=== PATIENT | female | born 1995 | race Caucasian/White ===

== ENCOUNTER → 2018-05-25 17:06 | Outpatient (REF) | payer OTHER, SELFPAY ==
[2018-05-30 16:05] LABS: Neisseria gonorrhoeae, NAA Negative (Negative)
== END ==
LOC: LAB 17:06
PROVIDERS: Obstetrics & Gynecology; Visit Provider Nurse Practitioner Obstetrics & Gynecology
DX: Z00.00 Encounter for general adult medical examination without abnormal findings (principal)
CPT/HCPCS: 87491; 87591

== ENCOUNTER → 2019-09-04 09:40 | Outpatient (CLI) | payer OTHER, SELFPAY ==
--- NOTE | 2019-09-04 09:43 | US_ITS ---
PROCEDURE: US TRANSVAGINAL CLINICAL INDICATION: US T/V- IUD placement DUB Intermittent bleeding. IUD in place COMPARISON: No exams were available for comparison FINDINGS: UTERUS: 6.8 x 3 x 4.5 cm with a combined endometrial thickness of 4 mm. IUD is in place as expected. No uterine mass evident. LEFT OVARY: 3.6 x 2.2 cm and containing a 16 mm cyst. Blood flow is present RIGHT OVARY: 2.4 x 1.5 cm containing a small 6 mm cyst. Blood flow noted. No cul-de-sac fluid IMPRESSION: IUD in place. Otherwise negative pelvic ultrasound Dictated by: Gavin Lira MD 09/04/2019 18:26 Electronically signed by Gavin Lira MD in [place] 09/04/2019 18:26
== END ==
PROVIDERS: PCP Family Medicine; Visit Provider Obstetrics & Gynecology
DX: N93.8 Other specified abnormal uterine and vaginal bleeding (principal); Z97.5 Presence of (intrauterine) contraceptive device
CPT/HCPCS: 76830

== ENCOUNTER → 2020-01-04 16:43 | Outpatient (CLI) | payer OTHER, SELFPAY | PROVIDERS: Visit Provider Family Medicine | DX: N30.00 Acute cystitis without hematuria (principal) | CPT/HCPCS: 87086; 87088; 87186 ==

== ENCOUNTER → 2020-07-30 11:16 | Outpatient (CLI) | payer OTHER, SELFPAY ==
[2020-07-30 12:15] LABS: Basophils % 0.3 % (0.1-2.0); Eosinophils # 0.1 K/mm3 (0.0-0.4); Eosinophils % 1.7 % (0.1-12.0); Hematocrit 43.3 % (37.0-47.0); Hemoglobin 13.7 g/dL (12.2-16.2); Lymphocytes # 1.7 K/mm3 (0.7-4.5); Lymphocytes % 34.8 % (10-50); Mean Corpuscular HGB Conc 31.7 g/dL (31.8-35.4); Mean Corpuscular Hemoglobin 29.3 pg (27.0-31.2); Mean Corpuscular Volume 92.4 fl (81-99); Mean Platelet Volume 6.9 fl (7.4-10.4); Monocytes # 0.2 K/mm3 (0.1-1.0); Monocytes % 4.5 % (1.7-9.3); Neutrophils # 2.8 K/mm3 (1.8-7.8); Neutrophils % 58.7 % (37.0-80.0); Platelet Count 336 K/mm3 (142-424); Red Blood Count 4.69 M/mm3 (4.20-5.40); Red Cell Distribution Width 12.7 % (11.5-17.5); White Blood Count 4.8 K/mm3 (4.8-10.8)
== END ==
PROVIDERS: PCP Family Medicine; Visit Provider Family Medicine
DX: Z20.828 Contact with and (suspected) exposure to other viral communicable diseases (principal); U07.1 COVID-19
CPT/HCPCS: 36415; 85025; U0003

== ENCOUNTER 2021-06-22 20:17 | Emergency (ER) | payer OTHER, SELFPAY ==
[2021-06-22 21:00] VITALS: BP 124/94; PULSE 115; RESP 20; TEMP 36.9; O2SAT 96; BMI 28.3
--- NOTE | 2021-06-22 21:23 | HMH.EDUTC ---
[facility] [place] Clinical Impression: Nausea Diarrhea Qualifiers: Diarrhea type: unspecified type Qualified Code(s): R19.7 - Diarrhea, unspecified Disposition: Home, Self-Care Condition on Discharge: Good Instructions: Diarrhea Additional Instructions: Drink extra fluids with and between meals. If you have difficulty drinking, try very small amounts of water or suck on ice chips. ? Avoid fruit juices, as these do not replace minerals and can actually increase diarrhea. ? Children and adults can use sports drinks to replenish electrolytes. Younger children and infants should use products formulated for children, like oral rehydration solutions. ? Eat food in small amounts and let your stomach recover. ? Get lots of rest. You may feel tired or weak. ? No greasy or fried foods for the next 24-48 hours BRAT diet Bananas Rice Apples and [place] ? Make sure to drink plenty of liquids ? Return if needed ? Straight to ER if any life threatening symptoms ? Zofran as prescribed ? You was given an outpatient order for diarrhea panel, please collect specimen and bring back to outpatient lab then call back to the [facility] or follow up with family doctor for results ? Follow up with family doctor in the next 48-72 hours if no improvement or any worsening of symptoms Prescriptions: Dicyclomine HCl [Bentyl 10mg capsule] 10 mg PO TID PRN #15 cap PRN Reason: Cramping Transmission Status: Sent to [facility] Ondansetron [Zofran 4mg ODT] 4 mg PO TIDP PRN #6 tab PRN Reason: Nausea Transmission Status: Sent to [facility] Referrals: Akil Cleveland MD [Primary Care Provider] - As needed Forms: Work/School Release Medical Decision Making - Tomi Inquiry Pt receiving controlled substance: No Tomi was queried for this patient: No Vital Signs: 06/22/21 21:00 Temperature 98.5 F Temperature Source Oral Pulse Rate [Right Brachial] 115 H Respiratory Rate 20 Blood Pressure [Right Arm] 124/94 H Blood Pressure Mean [Right Arm] 104 Blood Pressure Source [Right Arm] Automatic Cuff Blood Pressure Position [Right Arm] Sitting 02 Sat by Pulse Oximetry 96 Oxygen Delivery Method Room Air - Lab Data Lab results reviewed: Yes: I reviewed the patient's lab results. Orders (Tests/Meds): ED MEDICATIONS Discontinued Medications Generic Name Dose Route Start Last Admin Trade Name Freq PRN Reason Stop Dose Admin Dicyclomine HCl 10 mg 06/22/21 21:35 Dicyclomine 10mg Capsule PO 06/22/21 21:36 ONCE ONE Ondansetron HCl 4 mg 06/22/21 21:35 Ondansetron 4mg Odt SL 06/22/21 21:36 ONCE ONE Medical Decision Narrative: Patient states that she was feeling much better after medication cramping and nausea much improved and patient sitting on exam table drinking water [facility] [place] HPI - General Stated complaint: possible food poisen Time Seen by Provider: 06/22/21 21:30 Mode of Arrival: Ambulatory Source of Information: Patient Limitations: No Limitations Description of Symptoms (Recalled from Triage Doc. by RN): PATIENT C/O DIARRHEA, NAUSEA AND WEAKNESS SINCE TUESDAY NIGHT. POSSIBLE FOOD POISONING HEENT Symptoms (Recalled from RN notes): No Resp Symptoms (Recalled from RN notes): No Skin Symptoms (Recalled from RN notes): No MS Symptoms (Recalled from RN notes): No Functional Status (Recalled from RN notes): WNL - History of Present Illness Provider Complaint: Patient states that she eat out the other night and her and her boyfriend got sick States that she has been having diarrhea, nausea and cramping States that she was worried if she didnt come in and get something for the nausea she would end up dehydrated - Related Data Home Medications Medication Instructions Recorded Confirmed escitalopram oxalate 10 mg tablet 10 mg PO 90 Days tab 05/25/18 10/24/19 copper 380 square mm intrauterine INTRAUTERI 07/24/20 device fluticasone propionate 50 1 spray INTRANASAL DAILY 07/24/20 mcg/actua
[2021-06-22 21:50] VITALS: BP 111/74; PULSE 109; RESP 20; TEMP 36.9; O2SAT 96
[2021-06-23 19:01] LABS: UTC Pregnancy Test, Urine Negative (Negative)
== END 2021-06-22 21:55 | disposition home or self-care (01) ==
PROVIDERS: Emergency Provider Nurse Practitioner; PCP Family Medicine
DX: R11.0 Nausea (principal); F41.9 Anxiety disorder, unspecified; G43.709 Chronic migraine without aura, not intractable, without status migrainosus; Z88.0 Allergy status to penicillin
CPT/HCPCS: 81025; 99202; G0463

== ENCOUNTER → 2021-11-11 12:12 | Outpatient (CLI) | payer OTHER, SELFPAY | PROVIDERS: PCP Family Medicine; Visit Provider Nurse Practitioner | DX: Z20.822 Contact with and (suspected) exposure to COVID-19 (principal) | CPT/HCPCS: C9803; U0003; U0005 ==

== ENCOUNTER → 2021-11-11 12:24 | Outpatient (CLI) | payer OTHER, SELFPAY | PROVIDERS: Visit Provider Nurse Practitioner | DX: Z11.52 Encounter for screening for COVID-19 (principal) ==

== ENCOUNTER → 2022-05-06 11:33 | Outpatient (CLI) | payer OTHER, SELFPAY ==
[2022-05-06 12:31] LABS: Basophils % 0.8 % (0.1-2.0); Eosinophils # 0.1 K/mm3 (0.0-0.4); Eosinophils % 1.4 % (0.1-12.0); Hematocrit 38.3 % (37.0-47.0); Hemoglobin 12.4 g/dL (12.2-16.2); Lymphocytes # 1.4 K/mm3 (0.7-4.5); Lymphocytes % 26.6 % (10-50); Mean Corpuscular HGB Conc 32.4 g/dL (31.8-35.4); Mean Corpuscular Hemoglobin 26.8 pg (27.0-31.2); Mean Corpuscular Volume 82.8 fl (81-99); Mean Platelet Volume 6.9 fl (7.4-10.4); Monocytes # 0.3 K/mm3 (0.1-1.0); Monocytes % 5.8 % (1.7-9.3); Neutrophils # 3.5 K/mm3 (1.8-7.8); Neutrophils % 65.4 % (37.0-80.0); Platelet Count 371 K/mm3 (142-424); Red Blood Count 4.62 M/mm3 (4.20-5.40); Red Cell Distribution Width 14.3 % (11.5-17.5); White Blood Count 5.3 K/mm3 (4.8-10.8)
[2022-05-06 12:41] LABS: Strep Scrn Group A (Rapid) Negative (Negative)
== END ==
PROVIDERS: PCP Family Medicine; Visit Provider Family Medicine
DX: Z20.822 Contact with and (suspected) exposure to COVID-19 (principal); J02.9 Acute pharyngitis, unspecified
CPT/HCPCS: 36415; 85025; 87430; C9803; U0003; U0005

== ENCOUNTER 2022-10-12 09:28 | Emergency (ER) | payer OTHER, SELFPAY ==
[2022-10-12 10:23] VITALS: BP 138/87; PULSE 84; RESP 19; TEMP 36.7; O2SAT 100; BMI 30.8
[2022-10-12 10:35] LABS: UTC Influenza A Antigen Negative (Negative); UTC Influenza B Antigen Negative (Negative); UTC Strep Screen (Rapid) Negative (Negative)
--- NOTE | 2022-10-12 10:38 | EXP.UTC ---
Discharge Plan Disposition Patient Disposition: Home, Self-Care Condition: Good Prescriptions Prescriptions: New oseltamivir [Tamiflu] 75 mg capsule 75 mg PO Q12H 5 Days Qty: 10 0RF [id number] [Bromfed DM] 2-30-10 mg/5 mL Syrup 10 ml PO Q4H PRN (Reason: Cough) Qty: 240 0RF No Action ParaGard T 380A 380 square mm intrauterine device 1 device INTRAUTERI ONCE Qty: 1 0RF montelukast [Singulair] 10 mg tablet 10 mg PO DAILY fluticasone propionate 50 mcg/actuation spray,suspension 1 spray INTRANASAL DAILY Rx Instructions: administer into each nostril cephalexin 500 mg capsule 500 mg PO BID Qty: 14 0RF Referrals Follow up/Referrals: Akil Cleveland MD [Primary Care Provider] - See instructions Activity Restrictions/Add. Instructions Additional Instructions/Restrictions: Start Tamiflu today if you are going to take it. Discussed risk and possible benefits. Lots of rest Increase Fluids water, Gatorade, powerade, pedialyte,if /toddler/child Alternate Tylenol and / or ibuprofen as discussed for fever, aches, chills Follow up IMMEDIATELY with your family doctor for new or worsening Symptoms OR no noticeable improvement over the next 48-72 hours, 911 for difficulty or breathing You or your child area contagious until no fever, aches, chills for 24 hours with medication for symptoms Help Prevent the spread of influenza: ?Wash your hands often. Use soap and water. Wash your hands after you use the bathroom, change a child's diapers, or sneeze. Wash your hands before you prepare or eat food. Use gel hand cleanser that has 60% alcohol, when soap and water are not available. Do not touch your eyes, nose, or mouth unless you have washed your hands first. Cover your mouth when you sneeze or cough. Cough into a tissue or the bend of your arm. If you use a tissue, throw it away immediately and wash your hands. Clean shared items with a germ-killing tack cleaner. Clean table surfaces, doorknobs, and light switches. Do not share towels, silverware, and dishes with people who are sick. Wash bed sheets, towels, silverware, and dishes with soap and water. Wear a mask over your mouth and nose if you are sick. The face mask may help protect others from becoming infected with the flu. Wear the mask when in common areas of your home or if you seek care with a healthcare provider. Stay away from others if you are sick. Stay at home until 24 hours after your fever and symptoms are gone. Clinical Impressions Clinical Impression: Flu-like symptoms Stand Alone Forms Stand Alone Forms: Work/School Release Instructions Patient Instructions: Oseltamivir, Cough Discharge ED Provider: Denver Johnson [facility] [place] General Stated complaint: chest/head congestion Mode of Arrival: Ambulatory Source of Information: Patient Limitations: No Limitations Time Seen by Provider: 10/12/22 10:38 Description of Symptoms (Recalled from Triage Doc. by RN): pt comes in with c/o congestion, that began this morning. possible flu exposure pt unsure HEENT Symptoms (Recalled from RN notes): No Resp Symptoms (Recalled from RN notes): Yes Skin Symptoms (Recalled from RN notes): No MS Symptoms (Recalled from RN notes): No Functional Status (Recalled from RN notes): n/a History of Present Illness Provider Complaint: Patient states that she has been around her that is positive for the flu States that she has been having body aches, nasal congestion and cough and today she was feeling worse so she came in Related Data Home Medications Medication Instructions Recorded Confirmed fluticasone propionate 50 1 spray intranasal DAILY 07/24/20 07/27/22 mcg/actuation nasal spray,suspension montelukast 10 mg tablet 10 mg PO DAILY 07/24/20 07/27/22 Faith
[2022-10-12 11:02] VITALS: BP 138/87; PULSE 84; RESP 19; TEMP 36.7
== END 2022-10-12 11:03 | disposition home or self-care (01) ==
PROVIDERS: Emergency Provider Nurse Practitioner Family; PCP Family Medicine
DX: R09.81 Nasal congestion (principal)
CPT/HCPCS: 87804; 87880; 99212; G0463

== ENCOUNTER → 2023-01-17 11:45 | Outpatient (CLI) | payer OTHER, BC, SELFPAY ==
[2023-01-17 13:27] LABS: HCG,Quantitative 212 mIU/ml (0-5.42)
[2023-01-18 12:14] LABS: Progesterone 13.5 ng/mL (.)
== END ==
PROVIDERS: PCP Family Medicine; Visit Provider Obstetrics & Gynecology
DX: Z34.90 Encounter for supervision of normal pregnancy, unspecified, unspecified trimester (principal)
CPT/HCPCS: 36415; 84144; 84702

== ENCOUNTER → 2023-01-21 11:32 | Outpatient (CLI) | payer BC, OTHER, SELFPAY ==
[2023-01-21 13:11] LABS: HCG,Quantitative 1496 mIU/ml (0-5.42)
== END ==
PROVIDERS: PCP Family Medicine; Visit Provider Obstetrics & Gynecology
DX: Z34.90 Encounter for supervision of normal pregnancy, unspecified, unspecified trimester (principal)
CPT/HCPCS: 36415; 84702

== ENCOUNTER → 2023-02-08 09:44 | Outpatient (CLI) | payer BC, OTHER, SELFPAY ==
[2023-02-08 10:28] LABS: Basophils % 0.3 % (0.1-2.0); Eosinophils % 0.3 % (0.1-12.0); Hematocrit 38.9 % (37.0-47.0); Hemoglobin 12.8 g/dL (12.2-16.2); Lymphocytes # 1.8 K/mm3 (0.7-4.5); Lymphocytes % 15.8 % (10-50); Mean Corpuscular Hemoglobin 26.4 pg (27.0-31.2); Mean Corpuscular Volume 80.2 fl (81-99); Mean Platelet Volume 7.4 fl (7.4-10.4); Monocytes # 0.5 K/mm3 (0.1-1.0); Monocytes % 4.6 % (1.7-9.3); Neutrophils # 9.1 K/mm3 (1.8-7.8); Platelet Count 405 K/mm3 (142-424); Red Blood Count 4.85 M/mm3 (4.20-5.40); Red Cell Distribution Width 16.1 % (11.5-17.5); White Blood Count 11.6 K/mm3 (4.8-10.8)
[2023-02-09 11:30] LABS: Rubella Antibodies, IgG <0.90 index (Immune >0.99)
[2023-02-11 05:34] LABS: Neisseria gonorrhoeae, NAA Negative (Negative)
[2023-02-20 21:05] LABS: HIV Screen 4th Generation wRfx Non Reactive; Hepatitis B Surface Antigen Negative; Hepatitis C Antibody Non Reactive
[2023-02-20 21:06] LABS: Rapid Plasma Reagin Ab Titer Non Reactive
== END ==
PROVIDERS: PCP Family Medicine; Visit Provider Obstetrics & Gynecology
DX: Z34.90 Encounter for supervision of normal pregnancy, unspecified, unspecified trimester (principal)
CPT/HCPCS: 36415; 85025; 86593; 86703; 86762; 86850; 87086; 87088; 87186; 87340; 87380; 87491; 87591; G0432

== ENCOUNTER → 2023-05-09 13:47 | Outpatient (CLI) | payer BC, OTHER, SELFPAY ==
--- NOTE | 2023-05-09 13:47 | US_ITS ---
PROCEDURE: US OB /MATERNAL DETAIL CLINICAL INDICATION: 20 wk anatomy scan COMPARISON: No exams available for comparison FINDINGS: Transabdominal sonographic images were obtained of the uterus. From her established due date she is 20 weeks 2 days. Single viable intrauterine gestation. Cephalic position. Placenta: Posteriorplacenta grade 1. There is average amount fluid. The cervix appears satisfactory. Closed and measuring 4 cm in length. Complete survey performed and was unremarkable on the submitted images as in PACS. No major anomalies identified on survey imaging by technologist. Active fetus. Three-vessel cord with satisfactory umbilical cord insertion. 4- chamber heart noted. LVOT, RVOT, aortic arch appear normal. Survey of brain & ventricles Unremarkable. Thalamus, cerebellum, choroid plexus, cisterna magna appear normal. Face and neck survey unremarkable. Profile, nasion, lips and nose appeared normal. Diaphragm and chest views unremarkable. Abdomen: Both kidneys noted, 2.9 mm renal pyelectasis left kidney. Stomach and bladder noted and satisfactory. Spine: Survey of the spine satisfactory with no anomalies identified nor imaged. Upper, thoracic and lower spine appear normal. Both arms and legs noted. Amniotic Fluid: Adequate. Measurements: Average ultrasound age 20weeks 0 days. Estimated due date by ultrasound age 1209/26/2023. Estimated weight 315g BPD = 20weeks 2days HC = 20weeks AC = 19weeks 3days FL = 20weeks 2days Growth Percentile= 22 Heart Rate = 153bpm Cerebellum = 19weeks 4days Humerus = 20weeks 5days HC/AC is 1.25 FL/BPD is 0.7 FL/AC is 0.23 IMPRESSION: 1. Viable fetus in the cephalic presentation with a posterior placenta grade 1. 2. The fluid is within normal limits. 3. Normal appearing anatomical scan with no major abnormalities found. 4. There is minimal renal pyelectasis measuring 2.9 mm on the left. 5. Size and dates are congruent. Dictated by: Wayne Mina MD 05/09/2023 20:49 Wayne Mina MD in [place] 05/09/2023 20:49
== END ==
PROVIDERS: PCP Family Medicine; Visit Provider Obstetrics & Gynecology
DX: Z34.92 Encounter for supervision of normal pregnancy, unspecified, second trimester (principal); Z3A.20 20 weeks gestation of pregnancy
CPT/HCPCS: 76811

== ENCOUNTER → 2023-06-21 07:38 | Outpatient (CLI) | payer BC, OTHER, SELFPAY ==
[2023-06-21 07:56] LABS: Basophils % 0.3 % (0.1-2.0); Eosinophils # 0.2 K/mm3 (0.0-0.4); Eosinophils % 1.5 % (0.1-12.0); Hematocrit 34.7 % (37.0-47.0); Hemoglobin 11.1 g/dL (12.2-16.2); Lymphocytes # 1.8 K/mm3 (0.7-4.5); Lymphocytes % 16.9 % (10-50); Mean Corpuscular HGB Conc 31.8 g/dL (31.8-35.4); Mean Corpuscular Hemoglobin 25.7 pg (27.0-31.2); Mean Corpuscular Volume 80.9 fl (81-99); Mean Platelet Volume 7.6 fl (7.4-10.4); Monocytes # 0.5 K/mm3 (0.1-1.0); Monocytes % 4.6 % (1.7-9.3); Neutrophils % 76.7 % (37.0-80.0); Platelet Count 447 K/mm3 (142-424); Red Blood Count 4.29 M/mm3 (4.20-5.40); White Blood Count 10.4 K/mm3 (4.8-10.8)
[2023-06-21 08:13] LABS: Glucose,Fasting 85 mg/dl (74-100)
[2023-06-21 09:37] LABS: Glucose 1 Hour 122 mg/dL (74-100)
== END ==
PROVIDERS: PCP Family Medicine; Visit Provider Obstetrics & Gynecology
DX: Z34.92 Encounter for supervision of normal pregnancy, unspecified, second trimester (principal); Z3A.27 27 weeks gestation of pregnancy
CPT/HCPCS: 36415; 82951; 85025

== ENCOUNTER → 2023-07-18 11:06 | Outpatient (CLI) | payer BC, OTHER, SELFPAY ==
[2023-07-18 11:44] LABS: Basophils % 0.2 % (0.1-2.0); Eosinophils # 0.1 K/mm3 (0.0-0.4); Eosinophils % 0.6 % (0.1-12.0); Hematocrit 34.3 % (37.0-47.0); Hemoglobin 10.7 g/dL (12.2-16.2); Lymphocytes # 1.6 K/mm3 (0.7-4.5); Lymphocytes % 13.8 % (10-50); Mean Corpuscular HGB Conc 31.2 g/dL (31.8-35.4); Mean Corpuscular Hemoglobin 24.3 pg (27.0-31.2); Mean Platelet Volume 7.5 fl (7.4-10.4); Monocytes # 0.6 K/mm3 (0.1-1.0); Monocytes % 4.9 % (1.7-9.3); Neutrophils # 9.1 K/mm3 (1.8-7.8); Neutrophils % 80.5 % (37.0-80.0); Platelet Count 463 K/mm3 (142-424); Red Blood Count 4.39 M/mm3 (4.20-5.40); Red Cell Distribution Width 15.3 % (11.5-17.5); White Blood Count 11.4 K/mm3 (4.8-10.8)
[2023-07-18 13:27] LABS: Alanine Aminotransferase 35 U/L (12-78); Albumin Level 3.6 g/dl (3.5-5.0); Albumin/Globulin Ratio 1.2 (1.1-1.8); Alkaline Phosphatase 102 U/L (38-126); Amylase 36 U/L (30-110); Anion Gap 11.2 mEq/L (5-15); Aspartate Amino Transferase 29 U/L (14-36); Blood Urea Nitrogen 5 mg/dl (7-17); Calcium 9.2 mg/dl (8.4-10.2); Carbon Dioxide 24 mmol/L (22.0-30.0); Chloride 105 mmol/L (98-107); Estimated Glomerular Filt Rate 150 ml/min (>60); GFR (African American) 182 ML/MIN (>60); Glucose 78 mg/dl (74-100); Lipase 61 U/L (23-300); Potassium 4.2 mmoL/L (3.5-5.1); Sodium 136 mmol/L (136-145); Total Protein,Serum 6.6 g/dl (6.3-8.2)
[2023-07-18 13:33] LABS: Bilirubin,Total < 0.1 mg/dl (0.2-1.3)
== END ==
PROVIDERS: PCP Family Medicine; Visit Provider Obstetrics & Gynecology
DX: Z3A.30 30 weeks gestation of pregnancy; R10.11 Right upper quadrant pain; O09.893 Supervision of other high risk pregnancies, third trimester
CPT/HCPCS: 36415; 80053; 82150; 83690; 85025

== ENCOUNTER → 2023-09-01 23:14 | Outpatient (CLI) | payer BC, OTHER, SELFPAY | PROVIDERS: PCP Family Medicine; Visit Provider Obstetrics & Gynecology | DX: Z34.93 Encounter for supervision of normal pregnancy, unspecified, third trimester (principal); Z3A.36 36 weeks gestation of pregnancy | CPT/HCPCS: 86403 ==

== ENCOUNTER 2023-10-02 13:26 | Inpatient (IN) | payer BC, OTHER, SELFPAY ==
[2023-10-02 13:43] VITALS: BMI 36.5
--- NOTE | 2023-10-02 14:04 | P.CONPHA_ITS ---
Pharmacy Intervention Comments: MEDICATION RECONCILIATION COMPLETED ON PATIENT USING EXTERNAL FILL HISTORY FROM PHARMACY AND LIST FROM FIELD SPEC OFFICE. -BRETT KINNEYD
--- NOTE | 2023-10-02 14:04 | HMH.PHAINT1 ---
Pharmacy Intervention Comments: MEDICATION RECONCILIATION COMPLETED ON PATIENT USING EXTERNAL FILL HISTORY FROM PHARMACY AND LIST FROM ACCOUNT RESOLUTION ANALYST OFFICE. -BRETT KINNEYD
[2023-10-02 14:27] VITALS: BP 136/67; PULSE 95; RESP 18; TEMP 36.9; O2SAT 98; BMI 35.9
[2023-10-02 14:52] LABS: Basophils % 0.3 % (0.1-2.0); Eosinophils % 0.1 % (0.1-12.0); Hematocrit 41.4 % (37.0-47.0); Hemoglobin 13.8 g/dL (12.2-16.2); Lymphocytes # 1.3 K/mm3 (0.7-4.5); Mean Corpuscular HGB Conc 33.2 g/dL (31.8-35.4); Mean Corpuscular Hemoglobin 27.6 pg (27.0-31.2); Mean Platelet Volume 8.3 fl (7.4-10.4); Monocytes # 0.5 K/mm3 (0.1-1.0); Monocytes % 4.9 % (1.7-9.3); Neutrophils # 8.1 K/mm3 (1.8-7.8); Neutrophils % 81.8 % (37.0-80.0); Platelet Count 327 K/mm3 (142-424); Red Blood Count 4.99 M/mm3 (4.20-5.40); Red Cell Distribution Width 20.3 % (11.5-17.5)
--- NOTE | 2023-10-03 02:25 | P.PNANES_ITS ---
[facility] Disclaimer: The information contained in this section may have been updated after the patient was seen, as this information can be updated by other users. Medical History Abdominal pressure in right upper quadrant Anemia affecting Postmaturity , 40-42 weeks gestation Rubella non-immune status, antepartum Surgical History No history of previous surgery Family History Other Cancer Diabetes Hypertension Social History Smoking Status: Never smoker alcohol intake: former substance use type: denies use current occupational status: employed Travel in the last 8 weeks: None [facility] Anesthesia Checklist Patient Identification Patient Identification: Arm Band and Verbal (Name & ) Structural Data Admitted From: Inpatient Planned Operative Procedure/s: Labor epidural Consent for Planned Operative Procedure(s) Verified: Yes NPO Status Verified Time NPO: 00:00 Chart Verification Results Verified: CBC Additional verifications Anesthesia Reactions: No Airway Assessment Mallampati Score:: Class II C-Spine Mobility Assessed: Yes TMJ Mobility Assessed: Yes Dentition: Good Dentition Neurological Assessment Level of Consciousness: Awake Hx Seizures: No Numbness or tingling in extremities: No Anesthesia Plan Anesthesia Risk discussed: Yes Anesthesia Plan: Verified ASA Class: II Anesthesia Type: Epidural
[2023-10-03 07:04] LABS: Microscopic, Urine URINE MICROSCOPIC (MICROSCOPIC)
[2023-10-03 07:07] LABS: Appearance,Urine CLEAR (Clear); Blood, Urine Negative (Negative); Color,Urine YELLOW (Yellow); Glucose,Urine (UA) Negative (Negative); Ketones,Urine 3+ (Negative); Leukocyte Esterase,Urine Negative (Negative); Nitrate,Urine Negative (Negative); Protein,Urine Negative (Negative); Specific Gravity, Urine 1.025 (1.005-1.030); Urobilinogen,Urine 0.2 EU/dl (0.2)
[2023-10-03 07:26] LABS: Bilirubin,Urine 1+ (Negative)
[2023-10-03 07:32] LABS: Squamous Epithelial Cell,Urine Occasional #/hpf (0-5)
--- NOTE | 2023-10-03 09:33 | EXP.HP ---
History of Present Illness *Admission Date: 10/03/23 *Reason for visit:: Scheduled induction of labor *History of present illness: Bhavik is a very pleasant 27 yo at 41w2d who presents to [facility] for scheduled induction of labor secondary to postdates. She is feeling well. Baby is active. Admits to intermittent contractions and pelvic pressure. She has had good care. Last ultrasound 08/24 with PDC demonstrated EFW 63 %ile, ARTUR WNL, BPP 05/24 and normal appearing limited anatomy. [facility] Disclaimer: The information contained in this section may have been updated after the patient was seen, as this information can be updated by other users. Medical History Abdominal pressure in right upper quadrant Anemia affecting Postmaturity , 40-42 weeks gestation Rubella non-immune status, antepartum Surgical History No history of previous surgery Family History Other Cancer Diabetes Hypertension Social History Smoking Status: Never smoker alcohol intake: former substance use type: denies use current occupational status: employed Travel in the last 8 weeks: None Review of Systems Review of Systems Review of systems:: pertinent systems reviewed and negative unless documented below *Genitourinary Comments: + intermittent contractions and pelvic pressure Meds Home Medications and Allergies Home Medications Medication Instructions Recorded Confirmed Type loratadine 10 mg tablet (Claritin) 10 mg PO DAILY Allergy Symptoms 06/28/23 10/02/23 History ferrous sulfate 325 mg (65 mg 325 mg PO DAILY Supplement 08/02/23 10/02/23 History iron) tablet fluticasone propionate 50 1 spray intranasal DAILY Allergy 10/02/23 10/02/23 History mcg/actuation nasal Symptoms spray,suspension ondansetron 4 mg disintegrating 4 mg PO Q8HP PRN Nausea And 10/02/23 10/02/23 History tablet Vomiting pantoprazole 40 mg tablet,delayed 40 mg PO DAILY Acid Reflux 10/02/23 10/02/23 History release vit no.95-ferrous 1 tab PO DAILY Supplement 10/02/23 10/02/23 History fumarate 28 mg-folic acid 800 mcg tablet () New Prescriptions to Start Prescriptions: Allergies Allergy/AdvReac Type Severity Reaction Status Date / Time penicillin G Allergy Mild rash Verified 09/28/23 08:27 Exam Data for Last 24 hours Vital signs and Labs for Last 24 Hours: Temp Pulse Resp BP Pulse Ox O2 Del Method 98.5 F 95 H 18 136/67 98 Room Air 10/02/23 14:27 10/02/23 14:27 10/02/23 14:27 10/02/23 14:27 10/02/23 14:27 10/02/23 14:27 Laboratory Results - last 24 hr 10/02/23 13:50: WBC 10.0, RBC 4.99, Hgb 13.8, Hct 41.4, MCV 83.0, MCH 27.6, MCHC 33.2, RDW 20.3 H, Plt Count 327, MPV 8.3, Neut % (Auto) 81.8 H, Lymph % (Auto) 13.0, [place] % (Auto) 4.9, Eos % (Auto) 0.1, Baso % (Auto) 0.3, Neut # (Auto) 8.1 H, Lymph # (Auto) 1.3, [place] # (Auto) 0.5, Eos # (Auto) 0.0, Baso # (Auto) 0.0, Blood Type A Positive, Antibody Screen Negative 10/03/23 06:45: Urine Color Yellow, Urine Appearance Clear, Urine pH 6.0, Ur Specific [place] 1.025, Urine Protein Negative, Urine Glucose (UA) Negative, Urine Ketones 3+, Urine Blood Negative, Urine Nitrate Negative, Urine Bilirubin 1+ A, Urine Urobilinogen 0.2, Ur Leukocyte Esterase Negative, Urine RBC 3-5, Urine WBC 3-5, Ur Squamous Epith Cells Occasional, Urine Bacteria None I & O for Last 24 hours: Intake & Output 09/30/23 10/01/23 10/02/23 10/03/23 23:59 23:59 23:59 23:59 Weight 203 lb Constitutional Constitutional: no acute distress and cooperative *Routine HEENT Exam Head: Present normocephalic and atraumatic Eye: Absent conjunctivae pink ENT: Present mucous membranes moist *Routine Neck Exam Neck: Present f
--- NOTE | 2023-10-03 17:39 | P.PN_ITS ---
Subjective *Date: 10/03/23 *Time: 17:39 Interval history: Called to replace empty epidural ORGANIZATION DEVELOPMENT CONSULTANT infusion bag. Pt. alert sitting up in bed. C/O I am feeling everything again. Bupivicaine 0.5% x8mL bolus given. Epidural ORGANIZATION DEVELOPMENT CONSULTANT restarted at 12mL/hr. w/Ropivicaine 0.2% w/Fentanyl 2mcg/mL. Will continue to follow. Exam Data for Last 24 hours Vital signs and Labs for Last 24 Hours: Temp Pulse Resp BP Pulse Ox O2 Del Method 98.5 F 95 H 18 136/67 98 Room Air 10/02/23 14:27 10/02/23 14:27 10/02/23 14:27 10/02/23 14:27 10/02/23 14:27 10/02/23 14:27 Laboratory Results - last 24 hr 10/03/23 06:45: Urine Color Yellow, Urine Appearance Clear, Urine pH 6.0, Ur Specific [place] 1.025, Urine Protein Negative, Urine Glucose (UA) Negative, Urine Ketones 3+, Urine Blood Negative, Urine Nitrate Negative, Urine Bilirubin 1+ A, Urine Urobilinogen 0.2, Ur Leukocyte Esterase Negative, Urine RBC 3-5, Uri ne WBC 3-5, Ur Squamous Epith Cells Occasional, Urine Bacteria None I & O for Last 24 hours: Intake & Output 09/30/23 10/01/23 10/02/23 10/03/23 23:59 23:59 23:59 23:59 Weight 92.079 kg
--- NOTE | 2023-10-03 18:13 | PC.NURSE ---
spoke with Audrey, Surgery RN and HAYDEN Pierce regarding call in for c section.
--- NOTE | 2023-10-03 18:14 | EXP.LABOR.NO ---
Labor Note Subjective: Date: 10/03/23 Time: 18:14 Comment:: Comfortable with epidural Objective: NST:: Reactive Contractions:: every 2-3 minutes Cervical Dilation:: 5 Effacement:: 90% Station: 0 Membranes: spontaneously ruptured (10/02/23 at 2157) Fetus: Monitoring?: Yes monitoring type:: Internal and External Assessment: Labor progressing?: No Cephalopelvic disproportion?: Yes Problems: (1) Postmaturity , 40-42 weeks gestation: Category: Medical Code(s): O48.0 - Post-term (2) Failure to progress in labor: Category: Medical Code(s): O62.2 - Other uterine inertia (3) Anemia affecting : Category: Medical Code(s): O99.019 - Anemia complicating , unspecified trimester Plan: Plan for ?: Yes Additional information:: SVE /0 with significant molding. Cervical exam unchanged over 3 hours with increased molding. IUPC in placed with adequate MVUs. Pitocin reached 14 units. Discussed exam findings with patient and her family. Decision was made to proceed with primary secondary to failure to progress NST category 1, reactive. Discussed risks, benefits, alternatives, expectations and possible complications of surgery. All questions addressed and answered. She voiced understanding of risks and possible complications. Consent form signed.
[2023-10-03 19:35] LABS: Cord Blood PH 7.31 (7.35-7.45)
--- NOTE | 2023-10-03 20:14 | EXP.OP.NOTE ---
Date of procedure: 10/03/23 Pre-op Diagnosis:: 1. IUP at 41w2d 2. Induction of labor secondary to post dates 3. Failure to progress Post-op Diagnosis:: 1. IUP at 41w2d 2. Induction of labor secondary to post dates 3. Failure to progress 4. Cephalopelvic disproportion Procedure performed:: Primary Low Transverse Section Surgeon:: Yesenia Mohamud DO Plow And Boring Machine Tender(s):: Jolene Huerta, FOAMING MACHINE OPERATOR CURRICULUM CONSULTANT:: Other (Terrie Villasenor CRNA) Anesthesia: epidural Estimated blood loss (mL): 550 Clinical Note:: Bhavik is a very pleasant 27 yo at 41w2d who presents to [facility] Labor [facility] for scheduled induction of labor secondary to postdates. She has had good care. Last ultrasound 08/24 with PDC demonstrated EFW 63 %ile, ARTUR WNL, BPP 8/8 and normal appearing limited anatomy. She underwent induction of labor with Cytotec and Pitocin. GBS negative. She progressed to 5/90/0 with significant molding. Cervical exam unchanged over 3 hours with increased molding. IUPC in placed with adequate MVUs. Pitocin reached 14 units. Discussed exam findings with patient and her family. Decision was made to proceed with primary secondary to failure to progressNST category 1, reactive. Discussed risks, benefits, alternatives, expectations and possible complications of surgery. All questions addressed and answered. She voiced understanding of risks and possible complications. Consent form signed. She received Clindamycin 900 mg, Gentamicin 460 mg and Azithromycin 500 mg. Operative findings:: 1. Live female baby, Joe. APGARs 7 (1 min), 9 (5 min) 2. Grossly normal appearing uterus, bilateral fallopian tubes and ovaries Operative note:: The risks, benefits and alternatives of the procedure were reviewed with the patient. Informed consent was obtained. Patient was taken to the operating room where epidural was bolused. The patient received Gentamicin 460 mg, Azithromycin 500 mg and Clindamycin 900 mg preoperatively. Patient was placed in dorsal supine position with a leftward tilt. SCDs in place. Horner catheter had been placed and was draining valle concentrated urine with small amount of hematuria prior to the start of the procedure. heart tones were obtained. Vagina was prepped with Betadine swabs x 3. Patient was then prepped and draped in normal sterile fashion. Allis clamp test was performed to ensure adequate anesthesia. A Pfannenstiel skin incision was made 2 cm above pubic symphysis. This was carried through to underlying layer of fascia. Fascia was incised in midline, extended laterally with Preston scissors. Superior aspect of fascial incision was grasped with two Mary Kate clamps, elevated up, and rectus muscle dissected off bluntly and sharply with Preston scissors. The retcus muscle was then in the midline and the peritoneum was entered bluntly with a digit. Peritoneal incision was then extended superiorly and inferiorly with good visualization of the bladder. Mookie retractor was inserted. Bladder flap was made with Metzenbaum scissors. The lower uterine segment was incised in a transverse fashion. Head was delivered without difficulty. Remainder of body was delivered without difficulty. Mouth and nares were bulb suctioned. Spontaneous cry was noted. Delayed cord clamping was performed for 60 seconds. The umbilical cord was clamped and cut. The infant was handed to awaiting pediatric staff in stable condition. Dr. Cleveland was present. Apgars were 7(1 min), 9(5 min). Section of cord was obtained for cord blood gases. Cord blood was obtained. Gentle traction on the umbilical cord and uterine fundal massage delivered the placenta. Placenta was intact. Uterus was cleared of all clots and debris with a moist laparotomy sponge. Corners of the uterine incision were grasped with Allis clamps. The uterine incision was reapproximated with # 1 Vicryl suture in a running, locked stitch. Second layer of the same stitch was used to imbricate the incision. Hemostasis w
[2023-10-03 20:28] VITALS: BP 142/68; PULSE 109; RESP 18; TEMP 37.1; O2SAT 98
--- NOTE | 2023-10-03 20:36 | EXP.ANES.CKL ---
[facility] [place] Disclaimer: The information contained in this section may have been updated after the patient was seen, as this information can be updated by other users. Medical History (Updated 10/03/23 @ 18:17 by Yesenia Mohamud DO) Abdominal pressure in right upper quadrant Anemia affecting Failure to progress in labor Postmaturity , 40-42 weeks gestation Rubella non-immune status, antepartum Surgical History No history of previous surgery Family History Other Cancer Diabetes Hypertension Social History Smoking Status: Never smoker alcohol intake: former substance use type: denies use current occupational status: employed Travel in the last 8 weeks: None [facility] Anesthesia Checklist Patient Identification Patient Identification: Arm Band, Family and Verbal (Name & ) Structural Data Admitted From: Inpatient (OB 275) Planned Operative Procedure/s: Primary C-sxn Consent for Planned Operative Procedure(s) Verified: Yes Verified Documents: Surgical Consent and History and Physical NPO Status Verified Time NPO: 15:00 Chart Verification Results Verified: CBC and BMP Additional verifications Patient : Yes Anesthesia Reactions: No Cardiovascular Assessment Heart Sounds: S1 & S2 Pulse Rhythm: Irregular Peripheral Edema: Yes (2+ SANDY LE) Airway Assessment Mallampati Score:: Class II C-Spine Mobility Assessed: Yes (FROM) TMJ Mobility Assessed: Yes Dentition: Good Dentition (Nothing loose per pt.) Neurological Assessment Level of Consciousness: Awake, Alert, Appropriate and Follows Commands Hx Seizures: No Numbness or tingling in extremities: No Anesthesia Plan Anesthesia Risk discussed: Yes Anesthesia Plan: Verified ASA Class: II Anesthesia Type: Epidural (Epidural catheter in situ)
[2023-10-03 20:38] VITALS: BP 143/66; PULSE 105; RESP 18; O2SAT 98
--- NOTE | 2023-10-03 20:41 | P.PNANES_ITS ---
[facility] Anesthesia Record Part I Anesthesia Record I Intake, IV Amount: 1,400 Hydration: Adequate Estimated blood loss (mL): 550 Urine output (mL): 150 Blood Products used (#): none Blood Pressure: 142/68 SaO2: 98 Pulse Rate: 95 Airway Patency: Patent Respiratory Rate: 18 Temperature: 98.8 F Patient is:: Awake (Talking) and Stable Stable to PACU at:: 20:33
[2023-10-03 20:47] VITALS: BP 142/68; PULSE 95; RESP 18; TEMP 37.1; O2SAT 98
[2023-10-03 20:48] VITALS: BP 133/75; PULSE 100; RESP 18; O2SAT 98
[2023-10-03 20:58] VITALS: BP 147/60; PULSE 103; RESP 18; O2SAT 100
[2023-10-04 06:00] LABS: Eosinophils # 0.1 K/mm3 (0.0-0.4); Eosinophils % 0.4 % (0.1-12.0); Hematocrit 33.7 % (37.0-47.0); Hemoglobin 11.6 g/dL (12.2-16.2); Lymphocytes # 1.3 K/mm3 (0.7-4.5); Lymphocytes % 7.8 % (10-50); Mean Corpuscular HGB Conc 34.3 g/dL (31.8-35.4); Mean Corpuscular Hemoglobin 28.6 pg (27.0-31.2); Mean Corpuscular Volume 83.3 fl (81-99); Mean Platelet Volume 7.4 fl (7.4-10.4); Monocytes # 0.7 K/mm3 (0.1-1.0); Neutrophils # 14.6 K/mm3 (1.8-7.8); Neutrophils % 87.9 % (37.0-80.0); Platelet Count 220 K/mm3 (142-424); Red Blood Count 4.05 M/mm3 (4.20-5.40); White Blood Count 16.7 K/mm3 (4.8-10.8)
[2023-10-04 06:05] LABS: MANUAL DIFFERENTIAL MANUAL DIFFERENTIAL (MANUAL DIFF)
--- NOTE | 2023-10-04 08:07 | EXP.ANES.II ---
[facility] Anesthesia Record Part II Anesthesia Record Part II Discharge Time: 20:58 Destination: Obstetric PACU nurse assessment reviewed?: Yes Patient Condition:: Good Anesthesia Complications:: None Swallowing reflex intact?: Yes Airway Patency: Patent Cyanosis?: No Blood Pressure: 147/60 SaO2: 100 Respiratory Rate: 18 Pulse Rate: 103 Temperature: 98.8 F Mental Status: Alert & Oriented Pain level:: 0 Nausea and/or vomitting:: None Intake, IV Amount: 0 Hydration: Adequate
[2023-10-04 08:08] VITALS: BP 147/60; PULSE 103; RESP 18; TEMP 37.1; O2SAT 100
[2023-10-04 08:21] LABS: Lymphocytes % 9 % (10-50); Monocytes % 6 % (2-9); Neutrophils % 85 % (42-76); Platelet Estimate Normal; RBC Morphology Normal; Total Cells Counted 100
[2023-10-04 08:56] VITALS: BP 132/66; PULSE 86; RESP 18; TEMP 36.7; O2SAT 97
--- NOTE | 2023-10-04 12:33 | EXP.ACUTE.PN ---
Subjective *Date: 10/04/23 *Time: 12:33 Interval history: POD # 1 s/p PLTCS Feeling well. Pain controlled. Lochia appropriate. Breast feeding. Voiding without difficulty and passing flatus. Tolerating regular diet. Denies fever/chills, chest pain and shortness of breath. No headaches, vision changes, lightheadedness/dizziness. Medical Exam Vital signs and Labs for Last 24 Hours: Vital Signs Temp Pulse Pulse Resp BP BP Pulse Ox 10/04/23 08:56 98.0 F 86 18 132/66 97 10/03/23 20:58 103 H 18 147/60 H 100 10/03/23 20:48 100 H 18 133/75 98 10/03/23 20:38 105 H 18 143/66 H 98 10/03/23 20:28 98.8 F 109 H 18 142/68 H 98 10/03/23 20:47 98.8 F 95 H 18 142/68 H 10/04/23 08:08 18 O2 Del Method 10/04/23 08:56 Room Air 10/03/23 20:58 Room Air 10/03/23 20:48 Room Air 10/03/23 20:38 Room Air 10/03/23 20:28 Room Air 10/03/23 20:47 10/04/23 08:08 Intake and Output 10/03/23 10/04/23 10/04/23 23:59 07:59 15:59 Intake Total 1400 / 1400 0 / 0 Balance 1400 / 1400 0 / 0 Intake: Intake, Total IV Amount 1400 / 1400 0 / 0 Laboratory Results - last 24 hr 10/03/23 19:33: Cord ABG pH 7.31 L 10/04/23 05:30: WBC 16.7 H D, RBC 4.05 L, Hgb 11.6 L, Hct 33.7 L, MCV 83.3, MCH 28.6, MCHC 34.3, RDW 20.0 H, Plt Count 220 D, MPV 7.4, Neut % (Auto) 87.9 H, Lymph % (Auto) 7.8 L, Guthrie % (Auto) 4.0, Eos % (Auto) 0.4, Baso % (Auto) 0.0 L, Neut # (Auto) 14.6 H, Lymph # (Auto) 1.3, Guthrie # (Auto) 0.7, Eos # (Auto) 0.1, Baso # (Auto) 0.0, Total Counted 100, Neutrophils % (Manual) 85 H, Lymphocytes % (Manual) 9 L, Monocytes % (Manual) 6, Platelet Estimate Normal, RBC Morphology Normal I & O for Labs for Last 24 Hours: Intake & Output 10/01/23 10/02/23 10/03/23 10/04/23 23:59 23:59 23:59 23:59 Intake Total 1400 / 1400 0 / 0 Balance 1400 / 1400 0 / 0 Weight 203 lb Head: Present atraumatic and normocephalic ENT: Present normal exam Neck: Present normal inspection and full ROM Respiratory: Present CTA bilaterally and normal respiratory effort Cardiac: Present Reg Rate and Rhythm GI: Present soft and normal bowel sounds; Absent distention, tenderness or guarding Comments:: Uterine fundus firm and below umbilicus, pfannestiel incision clean/dry/intact with steri strips in place Rectal (female): Present deferred (female): Present deferred Extremities: Present full ROM and edema (+1 bilateral lower extremity edema); Absent calf tenderness Neuro: Present alert, awake, oriented x 3 and moves all extremities Assessment and Plan *Assessment and plan (1) S/P section: Status: Acute Category: Surgical Code(s): Z98.891 - History of uterine scar from previous surgery (2) Failure to progress in labor: Status: Acute Category: Medical Code(s): O62.2 - Other uterine inertia (3) Postmaturity , 40-42 weeks gestation: Status: Acute Category: Medical Code(s): O48.0 - Post-term (4) Anemia affecting : Status: Acute Category: Medical Code(s): O99.019 - Anemia complicating , unspecified trimester (5) Rubella non-immune status, antepartum: Status: Acute Category: Medical Code(s): O09.899 - Supervision of other high risk pregnancies, unspecified trimester; Z28.39 - Other underimmunization status Plan Continue routine care Encouraged increased ambulation Plan d/c home POD # 2
[2023-10-04 16:27] VITALS: BP 121/60; PULSE 92; RESP 18; TEMP 36.8; O2SAT 99
[2023-10-04 19:56] VITALS: BP 123/68; PULSE 112; RESP 17; TEMP 37.3; O2SAT 100
[2023-10-05 05:38] VITALS: BP 114/64; PULSE 78; RESP 18; TEMP 37; O2SAT 100
[2023-10-05 08:10] VITALS: BP 123/64; PULSE 107; RESP 16; TEMP 36.8; O2SAT 100
--- NOTE | 2023-10-05 12:53 | EXP.DC.SUM ---
General Admission date:: 10/02/23 Discharge date: 10/05/23 HPI HPI HPI: POD # 2 s/p PLTCS Resting comfortably. Pain controlled. Breast feeding. Light lochia. Voiding without difficulty. Passing flatus. Admits to two loose BMs. Tolerating regular diet. No nausea or vomiting. Denies fever/chills, chest pain and shortness of breath. No headaches, vision changes, lightheadedness/dizziness. No lower extremity edema. Ambulating well ad jose. Hospital Course Hospital Course Hospital Course: Mrs Bhavik Lu is a very pleasant 27 yo at 41w2d who presented to [facility] Labor and Delivery for scheduled induction of labor secondary to postdates.She has had good care. Last ultrasound 08/24 with PDC demonstrated EFW 63 %ile, ARTUR WNL, BPP 8/8 and normal appearing limited anatomy. She underwent induction of labor with Cytotec followed by Pitocin. GBS negative. She progressed to 5/90/0 with significant molding. Cervical exam unchanged over 3 hours with increased molding. IUPC in placed with adequate MVUs. Pitocin reached 14 units. Discussed exam findings with patient and her family. Decision was made to proceed with primary secondary to failure to progressNST category 1, reactive. Discussed risks, benefits, alternatives, expectations and possible complications of surgery. All questions addressed and answered. She voiced understanding of risks and possible complications. Consent form signed. She received Clindamycin 900 mg, Gentamicin 460 mg and Azithromycin 500 mg. She underwent primary on 10/03/23. She delivered a live female baby, Joe, weighing 8 lb 2 oz. APGARs 7 (1 min), 9 (5 min). She did well postoperatively. Pain controlled. Breast feeding. Lochia appropriate. Voiding without difficulty. Passing flatus. Admits to two loose BMs. Tolerating regular diet. No nausea or vomiting. Denies fever/chills, chest pain and shortness of breath. No headaches, vision changes, lightheadedness/dizziness. Vital signs stable, afebrile. Heart regular rate and rhythm. Lungs clear to auscultation. Abdomen soft, nontender. No lower extremity edema. Ambulating well ad jose. Normal hospital course. She was discharged home on POD # 2 with instructions to follow-up in the office in 2 weeks or sooner if needed. Exam Data for Last 24 hours Vital signs and Labs for Last 24 Hours: Temp Pulse Resp BP Pulse Ox O2 Del Method 98.2 F 107 H 16 123/64 100 Room Air 10/05/23 08:10 10/05/23 08:10 10/05/23 08:10 10/05/23 08:10 10/05/23 08:10 10/05/23 08:10 I & O for Last 24 hours: Intake & Output 10/02/23 10/03/23 10/04/23 10/05/23 23:59 23:59 23:59 23:59 Intake Total 1400 / 1400 0 / 0 Balance 1400 / 1400 0 / 0 Weight 203 lb Constitutional Constitutional: no acute distress *Routine HEENT Exam Head: Present normocephalic and atraumatic Eye: Absent conjunctivae pink ENT: Present mucous membranes moist *Routine Neck Exam Neck: Present full ROM *Routine Respiratory Exam Respiratory: Present CTA bilaterally and normal respiratory effort *Routine Cardiovascular Exam Cardiovascular: Present RRR *Routine Abdominal Exam Abdominal: Present soft and normoactive bowel sounds; Absent tenderness or distended Comments: Uterine fundus firm and below umbilicus, Pfannenstiel incision clean/dry/intact with steri strips in place *Routine Rectal Exam Patient deferred: visual exam *Routine Exam Patient deferred: external exam *Routine Extremities Exam Extremities: Present full ROM; Absent edema or calf tenderness *Routine Neurological Exam Neurological: Present alert, oriented X3 and moving all extremities Routine Psychiatric Exam Psychiatric: Present normal affect and cooperative DS: Diagnosis Discharge Diagnosis (1) S/P section: Status: Acute Code(s): Z98.891 - History of uterine scar from previous surgery (2) Failure to progress in labor: Status: Acute Code(s): O62.2 - Other uterine inertia (3
[2023-10-05 16:41] VITALS: BP 115/64; PULSE 108; RESP 16; TEMP 37.4; O2SAT 98
== END 2023-10-05 18:32 | disposition home or self-care (01) | DRG 788 ==
PROVIDERS: Admitting Provider Obstetrics & Gynecology; PCP Family Medicine; Visit Provider Obstetrics & Gynecology
PROC: 10D00Z1 Extraction of Products of Conception, Low, Open Approach (ICD-10-PCS; CPT 59514; principal; 2023-10-03 18:50)
DX: O48.0 Post-term pregnancy (principal); Z3A.41 41 weeks gestation of pregnancy; O33.9 Maternal care for disproportion, unspecified; Z37.0 Single live birth; O62.0 Primary inadequate contractions; Z98.891 History of uterine scar from previous surgery
CPT/HCPCS: 59514; 36415; 59025; 81001; 82800; 85007; 85025; 86850; 94761; C1758; C9290; G0283; J2405

== ENCOUNTER 2023-10-12 10:18 | Outpatient (CLI) | payer BC, OTHER, SELFPAY ==
[2023-10-12 10:32] VITALS: BMI 36.9
--- NOTE | 2023-10-12 10:33 | XR_ITS ---
FINAL REPORT CLINICAL HISTORY: concern about hypoactive BS COMPARISON: None FINDINGS: SINGLE VIEW ABDOMEN A single view of the abdomen was obtained. There is a nonobstructive bowel gas pattern. There is a moderate Saez stool in the colon. There are no abnormally dilated loops of small bowel. No abnormal calcifications are identified. IMPRESSION: Moderate stool in the colon. Reviewed, Interpreted and Dictated by John Sanchez MD Transcribed by Flavia Marie Authenticated and [facility]
[2023-10-12 10:35] VITALS: BP 141/81; PULSE 85; RESP 18; TEMP 36.4; O2SAT 95; BMI 36.9
--- NOTE | 2023-10-12 10:42 | PC.NURSE ---
1025 Dr. Mohamud called, reports that she is sending pt over from the office. reports that pt had several episodes of diarrhea, started taking imodium and now has hypoactive BS. reports that pt looks well but she is concerned about hypoactive BS and is sending her to triage for evaluation. Telephone orders received for CBC, CMP, amylase, lipase, lactic acid and KUB. Telephone orders R/V.
[2023-10-12 11:00] VITALS: BP 129/76
[2023-10-12 11:03] LABS: Basophils % 0.3 % (0.1-2.0); Eosinophils # 0.1 K/mm3 (0.0-0.4); Eosinophils % 0.8 % (0.1-12.0); Hematocrit 34.6 % (37.0-47.0); Hemoglobin 11.4 g/dL (12.2-16.2); Lymphocytes # 1.2 K/mm3 (0.7-4.5); Lymphocytes % 9.4 % (10-50); Mean Corpuscular HGB Conc 32.9 g/dL (31.8-35.4); Mean Corpuscular Hemoglobin 27.3 pg (27.0-31.2); Mean Corpuscular Volume 83.1 fl (81-99); Mean Platelet Volume 7.7 fl (7.4-10.4); Monocytes # 0.5 K/mm3 (0.1-1.0); Monocytes % 3.6 % (1.7-9.3); Neutrophils # 10.7 K/mm3 (1.8-7.8); Platelet Count 893 K/mm3 (142-424); Red Blood Count 4.17 M/mm3 (4.20-5.40); Red Cell Distribution Width 19.5 % (11.5-17.5); White Blood Count 12.5 K/mm3 (4.8-10.8)
[2023-10-12 11:07] LABS: Alanine Aminotransferase 25 U/L (12-78); Albumin Level 2.8 g/dl (3.5-5.0); Albumin/Globulin Ratio 0.8 (1.1-1.8); Alkaline Phosphatase 220 U/L (38-126); Amylase 31 U/L (30-110); Anion Gap 9.1 mEq/L (5-15); Aspartate Amino Transferase 31 U/L (14-36); Bilirubin,Total 0.3 mg/dl (0.2-1.3); Blood Urea Nitrogen 13 mg/dl (7-17); Calcium 8.1 mg/dl (8.4-10.2); Carbon Dioxide 25 mmol/L (22.0-30.0); Chloride 107 mmol/L (98-107); Creatinine Clearance Estimated 178 mL/min (50-200); Estimated Glomerular Filt Rate 102 ml/min (>60); GFR (African American) 123 ML/MIN (>60); Globulin 3.3 g/dL (1.3-3.2); Glucose 85 mg/dl (74-100); Lipase 23 U/L (23-300); Potassium 3.1 mmoL/L (3.5-5.1); Sodium 138 mmol/L (136-145); Total Protein,Serum 6.1 g/dl (6.3-8.2)
[2023-10-12 11:08] LABS: Lactic Acid 0.7 mmol/L (0.7-2.1)
[2023-10-12 11:15] LABS: MANUAL DIFFERENTIAL MANUAL DIFFERENTIAL (MANUAL DIFF)
[2023-10-12 11:30] VITALS: BP 130/80
[2023-10-12 11:45] LABS: Lymphocytes % 9 % (10-50); Monocytes % 7 % (2-9); Neutrophils % 84 % (42-76); Total Cells Counted 100
[2023-10-12 11:46] LABS: Anisocytosis 1+; Microcytosis 1+; Platelet Estimate Moderate Increase
== END 2023-10-12 12:37 | disposition home or self-care (01) ==
LOC: OBOUT 10:19 → OB 10:20
PROVIDERS: PCP Family Medicine; Visit Provider Obstetrics & Gynecology
DX: Z39.0 Encounter for care and examination of mother immediately after delivery (principal)
CPT/HCPCS: 36415; 74018; 80053; 82150; 83605; 83690; 85007; 85025

== ENCOUNTER 2025-04-15 13:19 | Outpatient (CLI) | payer BC, SELFPAY ==
--- OUTSIDE RECORDS SUMMARY | 2025-04-15 13:21 | XMS_ITS | Clinical Summary ---
Author Organization Healthcare Address [address] [place] [address] Care Team Providers Care Compressor Battery Pellets Name Role Phone Unavailable Primary Care Provider Unavailabl e Encounters Date Type Department Care Team Description 04/10/2025 Orders Only [facility] [address] [place] [address] Quin Acosta RN Amenorrhea (Primary Dx) from Last 3 Months Social History Tobacco Use Types Packs/Day Years Used Date Smoking Tobacco: Never Assessed Comments Unknown Sex and Gender Information Value Date Recorded Sex Assigned at Not on file Legal Sex Female 5:16 PM EDT Gender Identity Not on file Sexual Orientation Not on file Plan of Treatment Upcoming Encounters Date Type Department Care Team (Late st Contact Info) Description 05/27/2025 8:00 AM EDT Appointment [facility] [address] [place] [address] 05/27/2025 8:45 AM EDT Initial [facility] [address], [address] [place] [address] Yin Bojorquez, FLOOR HELPER, CNM [address] [place] [address] Health Maintenance Due Date Last Done Comments [facility]-Depression Screening 1997 [facility]-HIV Screening 1997 [facility]-Hepatitis C Screening 1997 [facility]-Infant/Child/Adol SDOH Screenings 1997 [facility]-IPV Vaccines (2 of 3 - 4-dose series) 05/28/1998 04/30/1998 [facility]-Varicella Vaccines (1 of 2 - 13+ 2-dose series) 2010 HPV Vaccines (1 - 3-dose series) 2012 [facility]- SDOH Screenings 12/27/2015 [facility]-Adult SDOH Screenings 12/27/2015 [facility]-Hepatitis B Vaccines (1 of 3 - 19+ 3-dose series) 2016 [facility]-Pap Smear 2018 [id number] Vaccine (1 - 2023- season) 2024 [facility]-Influenza Vaccine (Season Ended) 2025 09/01/2023 [facility]-DTaP,Tdap,and Td Vaccines (3 - Td or Tdap) 08/17/2033 08/17/2023, 04/30/1998 [facility]-Zoster Vaccines (1 of 2) 12/27/2047 [facility]-HIB Vaccines Aged Out 04/30/1998 No longer e ligible based on patient's age to complete this topic [facility]-Hepatitis A Vaccines Aged Out No longer eligible based on patient's age to complete this topic [facility]-Pneumococcal Vaccine: Pediatrics (0 to 5 Years) and At-Risk Patients (6 to 49 Years) Aged Out No longer eligible b ased on patient's age to complete this topic [facility]-Rotavirus Vaccines Aged Out No lo nger eligible based on [place] [address] GUTIERREZ
--- OUTSIDE RECORDS SUMMARY | 2025-04-15 13:21 | XMS_ITS | Encounter Summary ---
Author Organization Healthcare Address [address] [place] [id number] Care Team Providers Care Custodial Aide Name Role Phone Unavailable Primary Care Provider Unavailabl e Reason for Referral * Imaging (Routine) - Authorized Specialty Diagnoses / Procedures Referred By Contac t Referred To Contact Diagnoses Amenorrhea Procedures OB US Nuchal Translucency Alysa Ang APRN, CNM [address] [place] [address] Phone: tel: fax: Referral ID Status Reason Start Date Expiration Date V isits Requested Visits Authorized [id number] Authorized 04/10/2025 10/10/2026 1 1 Encounter Details Date Type Department Care Team (Late Contact Info) Description 04/10/2025 Orders Only [facility] [address], [address] [place] [address] Quin Acosta RN [facility] Amenorrhea (Primary Dx) Social History Tobacco Use Types Packs/Day Years Used Date Smoking Tobacco: Never Assessed Comments Unknown Sex and Gender Information Value Date Recorded Sex Assigned at Not on file Legal Sex Female 5:16 PM EDT Gender Identity Not on file Sexual Orientation Not on file documented as of this encounter Plan of Treatment Upcoming Encounters Date Type Department Care Team (Late Contact Info) Description 05/27/2025 8:00 AM EDT Appointment [facility] [address] [place] [address] 05/27/2025 8:45 AM EDT Initial [facility] [address], [address] [place] [address] Yin Bojorquez, ROXY, CNM [address] [place] [address] Scheduled Orders Name Type Priority Associated Diagnoses Orde r Schedule OB US Nuchal Translucency Imaging Routine Amenorrhea Expected: 04/10/2025, Expires: 10/12/2026 documented as of this encounter Visit Diagnoses Diagnosis Amenorrhea- Primary Absence of menstruation documented in this encounter
--- NOTE | 2025-04-15 13:26 | US_ITS ---
PROCEDURE: US OB <= 14 WEEKS FETUS CLINICAL INDICATION: DATES COMPARISON: No exams were available for comparison FINDINGS: Transvaginal sonographic images of the pelvis were obtained. From her last menstrual period she is 6weeks 0 days. An intrauterine gestational sac is present with a pole with a crown-rump length of 0.21cm This correlates to a gestational age of 6weeks 0 days. heart tones are not yet present. Yolk sac is noted. The right ovary is seen and appears normal. There appears to be a 1.2 cm corpus luteum in the right ovary. The left ovary is not visualized today. There is no fluid in the cul-de-sac. IMPRESSION: 1. There is a gestational sac within the uterine cavity with a yolk sac. 2. An embryo and heart tones are not yet visualized. Would suggest repeat scan in 1 week. 3. Right ovary is seen and appears to contain a corpus luteum. The left ovary is not visualized. 4. No fluid in the cul-de-sac. Dictated by: Wayne Mina MD 04/15/2025 16:01 Wayne Mina MD in [facility] 04/15/2025 16:01
== END 2025-04-15 23:59 | disposition home or self-care (01) ==
LOC: RAD 13:20
PROVIDERS: PCP Physician Assistant
DX: O34.81 Maternal care for other abnormalities of pelvic organs, first trimester (principal); N83.11 Corpus luteum cyst of right ovary; Z3A.01 Less than 8 weeks gestation of pregnancy
CPT/HCPCS: 76801

== ENCOUNTER 2025-05-06 14:50 | Outpatient (CLI) | payer BC, SELFPAY ==
--- OUTSIDE RECORDS SUMMARY | 2025-01-02 05:45 | XMS_ITS ---
Author Organization [facility] Address [address] [place] [id number] Care Team Providers Care Emergency Preparedness Manager Name Role Phone Cristofer Akil Primary Care Provider Khadijah Moncada Unavailable [phone] Geno Hood Unavailable [phone] Allergies Allergen (clinical drug ingredient) Drug/Non Drug [...] Interpretation:Normal Performing Lab: Notes/Report: Test performed by [facility] [address] [place] [address] , [address], [place] [address] Mars Chahal MD, Process Design Engineer CLIA: [id number] Sodium 143 135-145 mmol/L Potassium 4.7 3.5-5.3 [...] Interpretation:Normal Performing Lab: Notes/Report: Test performed by [email or web address] [address] [place] [address] , [place] [address] Mars Chahal MD, Process Design Engineer CLIA: [id number] TSH reflex to FT4 1.47 0.43-5.25 mU/L P-Vitamin D 25-Hydroxy Reviewed date:01/03/2025 05:09:39 PM Interpretation:29.7 Performing Lab: Notes/Report: Test performed by [email or web address] [address] [place] [address] , [place] [address] Mars Chahal MD, Process Design Engineer CLIA: [id number] Vitamin D 25-Hydroxy 29.7 30.0-100.0 ng/mL Interpretation [...] Provider Diagnosis [facility] [address] [facility] [address] [place], [place] [id number] 01/02/2025 Geno Hood Generalized anxiety disorder F41.1 [...] Notes * ESE MOHSENOB:1995 (29 yo F)Acc No.[id number]:01/02/2025 Progress Notes Patient: HAYDEE JONES Provider: MARCI Osuna :1995 A ge:29 Y S ex:Female Date:01/02/2025 Address:[address] [place] [address] [address], [place], [id number] Pcp:Akil Cleveland Subjective: * Chief Complaints: * [...] Codes: 8 5025 CBC WITH AUTO DIFF, 08970 VENIPUNCT, ROUTINE*, 3074F SYST BP LT 130 MM HG, 3079F DIAST BP 80-89 MM HG * Follow Up: v ia phone to report test results * Images: Billing Information: * Visit Code: 10628 Office Visit, Est Pt., Level 4. * Procedure Codes: 21647 CBC WITH AUTO DIFF. 88151 VENIPUNCT, ROUTINE*. 3074F SYST BP LT 130 MM HG. 3079F DIAST BP 80-89 MM HG. * Electronic signature of MARCI Roland on 05/06/2025 at 02:52 PM EDT Sign off status: Pending * Provider: MARCI Osuna Date: 0 01/02/2025 Generated for Mariei ng/Fauteg/eTransmitting on: 0 05/06/2025 02:52 PM EDT History and Physical Notes * [...]
--- NOTE | 2025-05-06 14:52 | US_ITS ---
PROCEDURE: US OB <= 14 WEEKS FETUS CLINICAL INDICATION: REPEAT SCAN COMPARISON: US US OB <= 14 WEEKS FETUS from 04/15/2025 FINDINGS: Transvaginal sonographic images of the pelvis were obtained. From her last menstrual period she is 9weeks 0 days. An intrauterine gestational sac is present with a pole with a crown-rump length of 2.16cm This correlates to a gestational age of 8weeks 6days. RUTH will remain 12/09/2025 heart tones are present with an FHR of 176bpm. Yolk sac is noted. The yolk sac measures 4.9mm. A small subchorionic hemorrhage is seen in the lower uterine segment. The right ovary is seen and appears normal. The left ovary is not visualized today.. There is no fluid in the cul-de-sac. IMPRESSION: 1. Viable embryo within the uterine cavity. heart rate activity is seen. 2. The embryo measures 8 weeks and 6 days which is consistent with her last menstrual period. Her RUTH will remain 12/09/2025. 3. The right ovary is seen and appears normal. The left ovary is not visualized. 4. No fluid in the cul-de-sac. 5. A small subchorionic hemorrhage is seen in the lower uterine segment. Dictated by: Wayne Mina MD 05/06/2025 18:14 Wayne Mina MD in OV 05/06/2025 18:14
--- OUTSIDE RECORDS SUMMARY | 2025-05-06 14:52 | XMS_ITS | Encounter Summary ---
Author Organization Healthcare Address [address] [place] [id number] Care Team Providers Care Beater Room Helper Name Role Phone Unavailable Primary Care Provider Unavailabl e Reason for Referral * Imaging (Routine) - Authorized Specialty Diagnoses / Procedures Referred By Contac t Referred To Contact Diagnoses Amenorrhea Procedures OB US Nuchal Translucency Alysa Ang APRN, CNM [address] [place] [address] Phone: tel: fax: Referral ID Status Reason Start Date Expiration Date V isits Requested Visits Authorized [id number] Authorized 04/10/2025 10/10/2026 1 1 Encounter Details Date Type Department Care Team (Late Contact Info) Description 04/10/2025 Orders Only [facility] [address], [address] [place] [address] Quin Acosta RN [facility] Amenorrhea (Primary Dx) Social History Tobacco [...] [facility] [address] [place] [address] 05/27/2025 8:45 AM EDT Initial [facility] [address], [address] [place] [address] Yin Bojorquez, ROXY, CNM [address] [place] [address] Scheduled Orders Name Type Priority Associated Diagnoses Orde r Schedule OB US Nuchal Translucency Imaging Routine Amenorrhea Expected: 04/10/2025, Expires: 10/12/2026 documented as of this encounter Visit Diagnoses Diagnosis Amenorrhea- Primary Absence of menstruation documented in this encounter
--- OUTSIDE RECORDS SUMMARY | 2025-05-06 14:52 | XMS_ITS | Patient Health Record ---
Author Organization [facility] Address [address] [id number] Care Team Providers Care Pipe And Tank Fabricator Name Role Phone Ronnie Clevelandian Primary Care Provider MoncadaGregg lopezine Unavailable [phone] Geno Hood Unavailable [phone] Allergies Allergen (clinical drug ingredient) Drug/Non Drug [...] Interpretation:Normal Performing Lab: Notes/Report: Test performed by [facility] [address] [place] [address] , [address], [place] [address] Mars Chahal MD, Beaver Trapper CLIA: [id number] Sodium 143 135-145 mmol/L Potassium 4.7 3.5-5.3 [...] Interpretation:Normal Performing Lab: Notes/Report: Test performed by [facility] [address] [place] [address] , [facility] [place] [facility] [place] [address] Mars Chahal MD, Beaver Trapper CLIA: [id number] TSH reflex to FT4 1.47 0.43-5.25 mU/L P-Vitamin D 25-Hydroxy Reviewed date:01/03/2025 05:09:39 PM Interpretation:29.7 Performing Lab: Notes/Report: Test performed by [facility] [address] [place] [address] [place] [address] Mars Chahal MD, Beaver Trapper CLIA: [id number] Vitamin D 25-Hydroxy 29.7 30.0-100.0 ng/mL Interpretation of Vitamin D 25 OH: < 20 ng/mL - Deficiency 20 - 29 ng/mL - Insufficiency 30 - 100 ng/mL - Sufficiency > 100 ng/mL - Super-therapeutic- toxicity may occur above this level. Clinical correlation required. Medications Medication SIG (Take, Route, Frequency, Duration) Notes Start Date End Date Status Levocetirizine Dihydrochloride 5 MG 1 tab(s) orally once a day (in the evening); Duration: 90 days Not-Taking SUMAtriptan Succinate 100 MG 1 tab(s) orally once, may repeat once in 2 hours 09/30/2022 Not-Taking Fluticasone Propionate 50 MCG/ACT 1 spray(s) intranasally once a day; Duration: 30 day(s) Not-Taking Promethazine HCl 25 MG 1 tab(s) orally every 6 hours, prn 11/01/2022 Not-Taking Contrave 8-90 MG week one: 1qam, week two:1 bid, week three:2qam and 1 qpm, Week 4 onward: 2 bid orally 06/24/2022 Not-Taking +DHA 28-0.975 & 200 MG as directed Orally once a day Active Zoloft 50 MG 1 tablet Orally Once a day; Duration: 90 days 01/02/2025 Active PARAGARD T 380-A IUD *Please rev iew for potential replacement for e-prescription and drug interaction check* Not-Taking Montelukast Sodium 10 MG 1 tab(s) orally once a day at night; Duration: 30 day(s) Not-Taking Immunizations Vaccine Route Administration Date Status Comme nts xGardasil IM Intramuscular 05/07/2009 Administered xGardasil IM Intramuscular 07/15/2009 Administered xGardasil IM Intramuscular 04/20/2013 Administered Varivax IM Intramuscular 07/15/2009 Administered Tetanus Tdap-Adacel (over 7yrs) Unknown 08/17/2023 Administered Tetanus Dtap-Daptacel (under 7yrs) IM Intramuscular 05/07/2009 Administered MENINGOCOCCAL VACCINE, SC IM Intramuscular 05/07/2009 Admi nistered Menactra IM Intramuscular 11/06/2015 Administered IPV Unknown 04/30/1998 Administered COVID 19 Mary Unknown 05/20/2021 Administered Problems Problem Type SNOMED Code ICD Code Onset Dates Problem Status W/U Status Risk Notes Problem Allergic rhinitis (21322059) ALLERGIC RHINITIS NOS (477.9) Active confirmed Problem Sinusitis (26535123) Sinusitis (J32.9) Active confirmed Problem Vitamin D deficiency (78378792) Vitamin D deficiency (E55.9) Active confirmed Problem Anxiety (10640256) Anxiety (F41.9) Active confi rmed Problem Environmental allergy (043507535) Environmental allergies (Z91.048) Active confirmed Problem Generalized anxiety disorder (74726042) Generalized anxiety disorder (F41.1) Active confirmed Problem Migraine with aura (1190319) Migraine with aura and without status migrainosus, not intractable (G43.109) Active confirmed Problem Neck pain (85879288) Cervical spine pain (M54.2) Active confirmed Problem Pain in thoracic spine (008960288) Chronic midline thoracic back pain (M54.6) Active confirmed Problem Seasonal allergic rhinitis (154141483) Seasonal allergic rhinitis, unspecified trigger (J30.2) Active confirmed Problem Gastroesophageal reflux disease (697757097) Gastroesophageal reflux disease, unspecified whether esophagitis present (K21.9) Active confirmed Vital Signs Heart Rate 74 /min 01/02/2025 Blood pressure diastolic 86 mm Hg 01/02/2025 Height 63.75 in 01/02/2025 Blood pressure systolic 120 mm Hg 01/02/2025 Weight 178.8 lbs 01/02/2025 BMI 30.93 kg/m2 01/02/2025 Encounters Encounter Location Date Provider [facility] [address] [facility] [address] [facility] [address] [id number] 01/02/2025 Geno Hood Generalized anxiety disorder F41.1 ; Hair loss L65.9 and Vitamin D deficiency E55.9 [facility] [address] [facility] [address] [facility] [address] [place] [id number] 01/03/2025 Geno Hood Assessments Encounter Date Diagnosis (ICD Code) Assessment Notes Treatment Notes Treatment Clinical Notes Section Notes 01/02/2025 Generalized anxiety disorder (ICD-10 - F41.1) 01/02/2025 Hair loss (ICD-10 - L65.9) 01/02/2025 Vitamin D deficiency (ICD-10 - E55.9) Plan Of Treatment No Information Insurance Providers Payer Name Payer Address Payer Phone Subscriber Number Group Number Insured Name Patient Relationship to Insured Coverage Start Date Coverage End Date [employer] [address] [place] [address] [id number] HAYDEE MULLIGAN Self - patient is the insured Medical (General) History Medical History History ICD Code allergic rhinitis migraine headache Surgical History Surgery Date(Month/Year) none
--- OUTSIDE RECORDS SUMMARY | 2025-05-06 14:52 | XMS_ITS | Clinical Summary ---
[facility] Address [address] [place] [address] Care Team Providers Care Inserter Name Role Phone Provider, No Known Primary Care Provider Unavail able Allergies Active Allergy Reactions Criticality Noted Date Comments Penicillins Rash Low 05/31/2023 Medications ondansetron ODT (ZOFRAN-ODT) 4 MG disintegrating tablet 1 tablet Every 8 (Eight) Hours As Needed for Nausea or Vomiting. 3 Active loratadine (CLARITIN) 10 MG tablet Take 1 tablet by mouth Daily. Active pantoprazole (PROTONIX) 40 MG EC tablet Take 1 tablet by mouth Daily. 3 Active Active Problems Problem Noted Date Diagnosed Date Maternal care for other (michael pected) abnormality and damage, not applicable or unspecified 05/31/2023 Pyelectasis of fetus on ultrasound 05/17 Assessment & Plan (08/24/2023 1:52 PM EST): Normal appearing renal views today Recommend follow up Social History Tobacco Use Types Packs/Day Years Used Date Smoking Tobacco: Never Smokeless Tobacco: Never Alcohol Use Standard Drinks/Week Comments Not Currently 0 (1 standard drink = 0.6 oz pur e alcohol) Abuse Screen Answer Date Recorded Unsafe at Home or Work/School Not on file Feels Threatened by Someone? Not on file 07/2023 Does Anyone Keep You from Co ntacting Others or Doint Things Outside the Home? Not on file 07/26/2023 Physical Sign of Abuse Present Not on file 1 Housing Stability Answer Date Recorded Current Living Arrangements Not on file 07/17 Potentially Unsafe Housing Conditions Not on tim e 07/26/2023 Family and Community Support Answer Sherif e Recorded Help with Day-to-Day Activities Not on file 07/26/2023 Lonely or Isolated Not on file 07/26/2023 Employment Answer Date Recorded Do you want help finding or keeping work or a july b? Not on file 07/26/2023 Disabilities Answer Date Recorded Concentrating, Remembering, or Making Decisions Difficulty Not on file 07/26/2023 Doing Errands Independently Difficulty Not on fi le 07/26/2023 Education Answer Date Recorded Help with school or training? Not on file Preferred Language Not on file 07/26/2023 Comments No Sex and Gender Information Value Date Recorded Sex Assigned at Not on file Legal Sex Female 10:40 AM EDT Gender Identity Not on file Sexual Orientation Not on file Last Filed Vital Signs Vital Sign Reading Time Taken Comments Blood Pressure 122/67 08/16/2023 10:59 AM EDT Pulse - - Temperature - - Respiratory Rate - - Oxygen Saturation - - Inhaled Oxygen Concentration - - Weight 93 kg (205 lb) 08/16/2023 10:59 AM EDT Height 158.8 cm (5' 2.5 ) 05/31/2023 10:54 AM ED T Body Mass Index 36.9 05/31/2023 10:54 AM EDT Plan of Treatment Health Maintenance Due Date Last Done Comments Annual Gynecologic Pelvic an d Breast Exam 1997 TDAP/TD VACCINES (1 - Tdap) 2016 ANNUAL PHYSICAL 05/11/2023 HEPATITIS C SCREENING 05/11/2023 COVID-19 Vaccine ( - 2023-2 5 season) 2024 INFLUENZA VACCINE 07/17/2025 Pneumococcal Vaccine 0-49 Aged Out No longer eligible based on patient's age to complete this topic Insurance [facility]EL[facility] PPO UMR Care Teams Inserter Relationship Specialty Start Date End Date Provider, No Known [facility] [place] [address] PCP - General 05/11/23
--- OUTSIDE RECORDS SUMMARY | 2025-05-06 14:52 | XMS_ITS | Clinical Summary ---
Author Organization Healthcare Address [address] [place] [address] Care Team Providers Care Box Feeder Name Role Phone Unavailable Primary Care Provider Unavailabl e Encounters Date Type Department Care Team Description 04/10/2025 Orders Only [facility] [address], [address] [place] [address] Quin Acosta RN Amenorrhea (Primary [...] [facility] [address] [place] [address] 05/27/2025 8:45 AM EDT Initial [facility] [address], [address] [place] [address] Yin Bojorquez, BELL PERSON, CNM [address] [place] [address] Health Maintenance Due Date Last [...] 19+ 3-dose series) 2016 [facility]Y-Pap Smear 2018 [id number] Vaccine (1 - 2023-25 season) 2024 [facility]-Influenza Vaccine (#1) 2025 09/01/2023 [facility]-DTaP,Tdap,and Td Vaccines (3 - [...] [place] [id number] GUTIERREZ
== END 2025-05-06 23:59 | disposition home or self-care (01) ==
LOC: RAD 14:50
PROVIDERS: PCP Physician Assistant
DX: O20.8 Other hemorrhage in early pregnancy (principal); Z3A.08 8 weeks gestation of pregnancy
CPT/HCPCS: 76801

== ENCOUNTER 2025-07-29 12:48 | Outpatient (CLI) | payer BC, SELFPAY ==
--- NOTE | 2025-07-29 12:51 | US_ITS ---
PROCEDURE: US OB >= 14 WEEKS FETUS CLINICAL INDICATION: ANATOMY SCAN COMPARISON: US US OB <= 14 WEEKS FETUS from 04/15/2025 US US OB <= 14 WEEKS FETUS from 05/06/2025 FINDINGS: Transabdominal sonographic images of the pelvis were obtained. From her established due date she is 21 weeks 0 days. Single viable intrauterine gestation. Cephalic position. Placenta: Posteriorplacenta grade 1. There is an average amount of fluid. The cervix appears satisfactory. Closed and measuring 4.30 cm in length. Complete survey performed and was unremarkable on the submitted images as in PACS. No discrete anomalies identified on survey imaging by technologist. Active fetus. Three-vessel cord with satisfactory umbilical cord insertion. 4- chamber heart not seen due to position. Situs, aortic arch, LVOT, RVOT, three-vessel view appear normal. Survey of brain & ventricles Unremarkable. Cerebellum, thalamus, choroid plexus, cisterna magna appear normal. Face and neck survey unremarkable. Profile, nasion, lips and nose appeared normal. Diaphragm and chest views unremarkable. Abdomen: Both kidneys noted and unremarkable. Stomach and bladder noted and satisfactory. Spine: Survey of the spine satisfactory with no anomalies identified nor imaged. Cervical, thoracic, lower spine appear normal. Both arms and legs noted. Amniotic Fluid: Adequate. MVP 2.56 cm Measurements: Average ultrasound age 20weeks 1day. Estimated due date by ultrasound age 0312/15/2025. Estimated weight 329g BPD = 20weeks 0 days HC = 20weeks 1day AC = 20weeks 1day FL = 20weeks 1day Growth Percentile= 9 Heart Rate = 143bpm Cerebellum = 19weeks 2days Humerus = 21weeks 6days HC/AC is 1.19 FL/BPD is 0.7 FL/AC is 0.22 IMPRESSION: 1. Viable fetus in the cephalic presentation with a posterior placenta grade 1. 2. The fluid appears slightly low but there is a pocket with an MVP 2.56 cm. 3. Suggest repeat scan in 1 week to monitor the fluid. 4. heart views were not complete due to position. Would suggest repeat scan when looking at the fluid in 1 week. 5. The rest the anatomical scan appears normal. 6. biometry is globally 1 week behind but consistent with the dates. 7. Bharti Knutson was notified. Dictated by: Wayne Mina MD 07/29/2025 14:34 Wayne Mina MD in OV 07/29/2025 14:37
--- OUTSIDE RECORDS SUMMARY | 2025-07-29 12:57 | XMS_ITS | Clinical Summary ---
[facility] [address] [place] [id number] Care Team Providers Care Care Consultant Name Role Phone Provider, No Known Primary [...] ANNUAL PHYSICAL 05/11/2023 HEPATITIS C SCREENING 05/11/2023 INFLUENZA VACCINE 05/17/2025 Pneumococcal Vaccine 0-49 Aged Out No longer eligible based on patient's age to complete this topic Insurance [facility] PPO Member Subscriber Plan / Payer (Ef fective 2023-Present) Name:Bhavik Lu Relation to Subscriber:Self Name:Lu, Bhavik Payer ID:[id number] (NAIC) Type:Not on file Address: [address] [place] [id number] UMR Care Teams Care Consultant Relationship Specialty Start Date End Date Provider, No Known [facility] [place] [address] PCP - General 05/11/23
--- OUTSIDE RECORDS SUMMARY | 2025-07-29 12:57 | XMS_ITS ---
Author Organization [facility] Source Produ ction (ClinicalSummary Clone) Address Unknown Care Team Providers Care Software Engineer Name Role Phone Unavailable Primary Care Physician Unavailab le Results * [UNITY] ANEUPLOIDY NIPT Performed by: [email or web address] Component Value Range Date Fraction 5.1% 06/05/2025 03 :47 am UTC Sex Chromosome Aneuploidy NOT DETECTED 03:47 am UTC Monosomy X LOW RISK <1 in 10,000 2024 03:47 am UTC Trisomy 13 LOW RISK <1 in 10,000 2024 03:47 am UTC Trisomy 18 LOW RISK <1 in 10,000 2024 03:47 am UTC Trisomy 21 LOW RISK <1 in 10,000 2024 03:47 am UTC Sex FEMALE 06/05/2025 03:4 7 am UTC Gestation SWIFT 06/05/20 03:47 am UT For detailed report, see PDF See PDF 06/05/2025 03:47 am UTC 06/05/2025 03:4 7 am [facility] Social History Observation Value Start Date End Date
--- OUTSIDE RECORDS SUMMARY | 2025-07-29 12:57 | XMS_ITS | Clinical Summary ---
Author Organization Healthcare Address [address] [place] [address] Care Team Providers Care Transmission Rebuilder Name Role Phone Unavailable Primary Care Provider Unavailabl e Encounters Date Type Department Care Team Description 07/26/2025 Telephone [facility] Diagnostic [facility] [address] [facility] [place] [address] Karthik Morrell MD from Last 3 Months Social History Tobacco Use Types Packs/Day Years Used Date Smoking Tobacco: Never Assessed Comments Unknown Sex and Gender Information Value Date Recorded Sex Assigned at Not on file Legal Sex Female 5:16 PM EDT Gender Identity Not on file Sexual Orientation Not on file Plan of Treatment Upcoming Encounters Date Type Department Care Team (Late st Contact Info) Description 08/27/2025 2:00 PM EST Appointment [facility] [address] [facility] [place] [address] 08/27/2025 2:00 PM EST Office Visit [facility] [address] [place] [address] Health Maintenance Due Date Last Done Comments [facility]-Depression Screening 1997 [facility]-HIV Screening 1997 [facility]-Hepatitis C Screening 1997 [facility]-/Child/Adol SDOH Screenings 1997 [facility]-IPV Vaccines (2 of 3 - 4-dose series) 05/28/1998 04/30/1998 [facility]Y-Varicella Vaccines (1 of 2 - 13+ 2-dose series) 2010 [facility]- SDOH Screenings 12/27/2015 [facility]Y-Adult SDOH Screenings 12/27/2015 [facility]-Hepatitis B Vaccines (1 of 3 - 19+ 3-dose series) 2016 [facility]-Pap Smear 2018 HPV Vaccines (1 - 3-dose SCDM series) 2024 [id number] Vaccine (1 - 2023- season) 2025 [facility]-Influenza Vaccine (#1) 2025 09/01/2023 [facility]-DTaP,Tdap,and Td [...] patient's age to complete this topic Insurance GUTIERREZ
--- OUTSIDE RECORDS SUMMARY | 2025-07-29 12:57 | XMS_ITS | Encounter Summary ---
Author Organization Healthcare Address [address] [place] [address] Care Team Providers Care Section Plotter Operator Name Role Phone Unavailable Primary Care Provider Unavailabl e Encounter Details Date Type Department Care Team (Late st Contact Info) Description 07/26/2025 Telephone [facility] Pediatric Cardiac Diagnostic Testing [address] [address] [facility], [place] [address] Karthik Morrell MD [address] [facility] [address] [place] [address] Social History Tobacco Use Types Packs/Day Years Used Date Smoking Tobacco: Never Assessed Comments Unknown Sex and Gender Information Value Date Recorded Sex Assigned at Not on file Legal Sex Female 5:16 PM EDT Gender Identity Not on file Sexual Orientation Not on file documented as of this encounter Miscellaneous Notes * Telephone Encounter - Shruthi Fan - 07/26/2025 1:29 PM EDT Patient answered and agreed to schedule appointment on 08/27 with an arrival time of 1:30 pm. documented in this encounter Plan of Treatment Upcoming Encounters Date Type Department Care Team (Late st Contact Info) Description 08/27/2025 2:00 PM EST Appointment [facility] Pediatric Cardiac Diagnostic Testing [address] [address] [facility], [place] [address] 08/27/2025 2:00 PM EST Office Visit [facility]iology [address] [place] [address] documented as of this encounter Visit Diagnoses Not on filedocumented in this encounter
== END 2025-07-29 23:59 | disposition home or self-care (01) ==
LOC: RAD 12:48
PROVIDERS: PCP Physician Assistant
DX: O28.3 Abnormal ultrasonic finding on antenatal screening of mother (principal); Z3A.21 21 weeks gestation of pregnancy
CPT/HCPCS: 76805

== ENCOUNTER 2025-07-29 14:19 | Outpatient (CLI) | payer BC, SELFPAY ==
--- OUTSIDE RECORDS SUMMARY | 2025-07-29 14:23 | XMS_ITS | Clinical Summary ---
[facility] Address [address] [place] [id number] Care Team Providers Care Animal Cytologist Name Role Phone Provider, No Known Primary [...] age to complete this topic Insurance [facility] PPO Member Subscriber Plan / Payer (Ef fective 2023-Present) Name:Bhavik Lu Relation to Subscriber:Self Name:Lu, Bhavik Payer ID:[id number] (NAIC) Type:Not on file Address: [address] [place] [id number] [employer] Care Teams Animal Cytologist Relationship Specialty Start Date End Date Provider, No Known [facility] [address] PCP - General 05/11/23
--- OUTSIDE RECORDS SUMMARY | 2025-07-29 14:23 | XMS_ITS | Clinical Summary ---
Author Organization Healthcare Address [address] [place] [address] Care Team Providers Care Web Content Producer Name Role Phone Unavailable Primary Care Provider Unavailabl e Encounters Date Type Department Care Team Description 07/26/2025 Telephone [facility] Pediatric Cardiac Diagnostic Testing [address] [facility] [place] [address] Karthik Morrell MD from Last 3 Months [...] Description 08/27/2025 2:00 PM EST Appointment [facility] Pediatric Cardiac Diagnostic Testing [address] [facility] [address] [facility], [place] [address] 08/27/2025 2:00 PM EST Office Visit [facility] [address] [place] [address] Health Maintenance Due Date Last Done Comments [...] Vaccines (1 - 3-dose SCDM series) 2024 [id number] Vaccine (1 - 2023- season) 2025 UKY-Influenza [...]
--- OUTSIDE RECORDS SUMMARY | 2025-07-29 14:23 | XMS_ITS | Encounter Summary ---
Author Organization Healthcare Address [address] [place] [address] Care Team Providers Care Psychologist Social Name Role Phone Unavailable Primary Care Provider Unavailabl e Encounter Details Date Type Department Care Team (Late st Contact Info) Description 07/26/2025 Telephone [facility] Pediatric Cardiac Diagnostic Testing [address] [facility] [address] [facility], [place] [address] Karthik Morrell MD [address] [facility] [address] [place] [address] Social History Tobacco Use Types [...] Description 08/27/2025 2:00 PM EST Appointment [facility] Pediatric Cardiac Diagnostic Testing [address] [facility] [address] [facility], [place] [address] 08/27/2025 2:00 PM EST Office Visit [facility] [address] [place] [address] documented as of this encounter Visit Diagnoses Not on filedocumented in this encounter
[2025-07-29 14:35] VITALS: BP 140/87; PULSE 95; RESP 18; TEMP 36.8; O2SAT 98; BMI 35.1
--- NOTE | 2025-07-29 15:37 | EXP.OB.CONS ---
History of Present Illness *Admission Date: 07/29/25 *Reason for visit:: Borderline low ARTUR *History of present illness: Bhavik Lu is a very pleasant 29-year-old G2, P1 who presented to labor and delivery triage for evaluation after her anatomy scan today showed borderline low ARTUR with growth restriction. This has been uncomplicated and she has been receiving care with a bookkeeping service sales agent for a planned home . Currently her complications include a history of a delivery for failure to progress [facility] Disclaimer: The information contained in this section may have been updated after the patient was seen, as this information can be updated by other users. Medical History (Updated 07/31/25 @ 16:40 by Radha Leon DO) Dysuria Increased urinary frequency No significant past medical history Surgical History S/P section Family History Other Cancer Diabetes Hypertension Social History Smoking Status: Never smoker alcohol intake: former substance use type: denies use current occupational status: employed Travel in the last 8 weeks?: None Have you lived/traveled outside US in past 30 days?: No Contact w/someone who lives/traveled outside US past 30 days?: No Exposure to someone with infectious disease in past 14 days?: No Do you have a fever (greater than 100.4 F or 38 C)?: No Have you tested positive for COVID-19?: No Exposed to someone with COVID-19 in past 14 days?: No Do you have a sore throat?: No Do you have a cough?: No Do you have any weakness?: No Do you have any diarrhea?: No Are you experiencing any unusual bleeding?: No Do you have any muscle aches/pain?: No Do you have any abdominal pain?: No Are you experiencing loss of taste or smell?: No Review of Systems Review of Systems Review of systems (narrative): Endorses good movement. Denies contractions, leakage of fluid, vaginal bleeding Meds Home Medications and Allergies Home Medications ?Medication ?Instructions ?Recorded ?Confirmed ?Type ferrous sulfate 325 mg (65 mg 325 mg PO DAILY 07/29/25 07/29/25 History iron) tablet (Iron (ferrous sulfate)) pantoprazole 20 mg tablet,delayed 20 mg PO DAILY 07/29/25 07/29/25 History release vits no.130-ferrous fum 1 tab PO DAILY 07/29/25 07/29/25 History 27 mg iron-folic acid 800 mcg tablet ( Vitamin) New Prescriptions to Start Prescriptions: Allergies Allergy/AdvReac Type Severity Reaction Status Date / Time penicillin G Allergy Mild rash Verified 05/16/24 15:45 OB (Inpt) Vital signs and Labs for Last 24 Hours: Temp Pulse Resp BP Pulse Ox O2 Del Method 98.2 F 95 H 18 140/87 98 Room Air 07/29/25 14:35 07/29/25 14:35 07/29/25 14:35 07/29/25 14:35 07/29/25 14:35 07/29/25 14:35 I & O for Labs for Last 24 Hours: Intake & Output 07/26/25 07/27/25 07/28/25 07/29/25 23:59 23:59 23:59 23:59 Weight 192 lb Results Labs 07/29/25 16:07 07/29/25 16:07 Labs: All other labs normal. Assessment and Plan *Assessment and plan (1) ARTUR (amniotic fluid index) borderline low: Status: Acute Category: Medical Code(s): O28.8 - Other abnormal findings on screening of mother (2) IUGR (intrauterine growth restriction): Status: Acute Category: Medical Plan Ordered TORCH titers Patient reports that she had NIPT done with her bookkeeping service sales agent and it was low risk Encouraged an MFM appointment and the bookkeeping service sales agent said that she would schedule this Reviewed ultrasound from 07/29/2025 which showed a fetus growing in the 8th percentile. EFW: 329 g. BPD: 11%, HC: 8%, AC: 16%, FL: 14%. Fluid was subjectively low with an MVP of 2.56. The patient received a 1 L bolus and was encouraged to copiously hydrate and a repeat ultrasound will be scheduled for 1 week Once titers came back I called the patient and reviewed them with that with her today 07/31/2025 at 4:30 PM. CMV titers are consistent with a previous infection encourage patient to repeat the series in 4 to 6 weeks to see if there was any increase in the titers. Discussed that she was nonimmune to rubella as well as varicella. Discussed that there was no indication of toxoplasmosis. Reviewed CBC and CMP which were both within normal limits with the patient
[2025-07-29] MEDS: LACTATED RINGERS 1000ML 1,000 ML 999 ML IV (16:01)
[2025-07-29 16:55] LABS: Hematocrit 39.9 % (37.0-47.0); Hemoglobin 13.1 g/dL (12.2-16.2); Immature Granulocytes % 0.5 %; Mean Corpuscular HGB Conc 32.8 g/dL (31.8-35.4); Mean Corpuscular Hemoglobin 28.3 pg (27.0-31.2); Mean Corpuscular Volume 86.2 fl (81-99); Nucleated Red Blood Cells % 0 %; Platelet Count 339 K/mm3 (142-424); Red Blood Count 4.63 M/mm3 (4.20-5.40); Red Cell Distribution Width-SD 43.0 fL; White Blood Count 9.7 K/mm3 (4.8-10.8)
[2025-07-29 17:01] LABS: Albumin Level 3.9 g/dl (3.5-5.0); Chloride 101 mmol/L (98-107); Potassium 3.5 mmoL/L (3.5-5.1); Sodium 135 mmol/L (136-145)
[2025-07-29 17:04] LABS: Alanine Aminotransferase 19 U/L (12-78); Albumin/Globulin Ratio 1.1 (1.1-1.8); Alkaline Phosphatase 88 U/L (38-126); Anion Gap 10.5 mEq/L (5-15); Aspartate Amino Transferase 23 U/L (14-36); Bilirubin,Total 0.2 mg/dl (0.2-1.3); Blood Urea Nitrogen 7 mg/dl (7-17); Carbon Dioxide 27 mmol/L (22.0-30.0); Creatinine Clearance Estimated 194 mL/min (50-200); Creatinine,Serum 0.60 mg/dl (0.52-1.04); Estimated Glomerular Filt Rate 120 ml/min (>60); GFR (African American) 145 ML/MIN (>60); Globulin 3.5 g/dL (1.3-3.2); Total Protein,Serum 7.4 g/dl (6.3-8.2)
[2025-07-29 17:05] LABS: Calcium 8.9 mg/dl (8.4-10.2); Glucose 66 mg/dl (74-100)
[2025-07-30 10:30] LABS: RPR W/RFX Titers Nonreactive (Nonreactive)
[2025-07-31 08:27] LABS: Cytomegalovirus (CMV) Ab, IgG 2.80 U/mL (0.00-0.59); Cytomegalovirus (CMV) Ab, IgM <30.0 AU/mL (0.0-29.9); Rubella Antibodies, IgG <0.90 index (Immune >0.99); Rubella Antibodies, IgM <20.0 AU/mL (0.0-19.9); Toxoplasma gondii Ab,IgG,Qn <3.0 IU/mL (0.0-7.1); Toxoplasma gondii Ab,IgM,Qn <3.0 AU/mL (0.0-7.9)
[2025-08-01 14:33] LABS: Parvovirus B19, IgG 6.4 index (0.0-0.8); Parvovirus B19, IgM 0.1 index (0.0-0.8)
== END 2025-07-29 17:15 | disposition home or self-care (01) ==
LOC: OBOUT 14:19 → OB 14:20
PROVIDERS: PCP Physician Assistant; Visit Provider Obstetrics & Gynecology
DX: O36.5920 Maternal care for other known or suspected poor fetal growth, second trimester, not applicable or unspecified (principal); O41.02X0 Oligohydramnios, second trimester, not applicable or unspecified; O28.8 Other abnormal findings on antenatal screening of mother; Z3A.21 21 weeks gestation of pregnancy
CPT/HCPCS: 80053; 85025; 86592; 86644; 86645; 86747; 86762; 86777; 86787; 87529; 96360; 99212; G0463; J7120

== ENCOUNTER 2025-08-05 13:49 | Outpatient (CLI) | payer BC, SELFPAY ==
--- OUTSIDE RECORDS SUMMARY | 2025-01-02 05:45 | XMS_ITS ---
Author Organization [facility] Address [address] [place] [id number] Care Team Providers Care Security Door Installer Name Role Phone Akil Cleveland Primary Care Provider Khadijah Moncada Unavailable [phone] Geno Hood Unavailable [phone] Allergies Allergen (clinical drug ingredient) Drug/Non Drug Allergy documented on EMR Reaction Allergy Type Onset Date Status amoxicillin Amoxicillin rash Drug Allergy Act coleen Penicillin rash Drug Allergy Active Results Component Value Reference Range Notes CBC Venipuncture (in house) Reviewed date:01/02/2025 05:13:35 PM Interpretation: Performing Lab: Notes/Report: wbc 6.2 3.5 - 10 lymph 26.7% 15 - 50 mid 6.5% 2 - 15 gran 66.8% 35 - 80 rbc 5.22 3.5 - 5.5 hgb 14.3 11.5 - 16.5 hct 43.8 35 - 55 mcv 83.9 75 - 100 mch 27.4 25 - 35 mchc 32.7 31 - 38 platlet 394 100 - 400 P-Comprehensive Metabolic Pa josé (CMP) Reviewed date:01/03/2025 05:09:39 PM Interpretation:Normal Performing Lab: Notes/Report: CLIA: [id number] Mars Chahal MD, Process Tank Tender [address] [facility] , [address], [place] [address] Test performed by [employer] Sodium 143 135-145 mmol/L Potassium 4.7 3.5-5.3 mmol/L Chloride 105 97-108 mmol/L CO2 25 22-32 mmol/L Glucose 71 65-99 mg/dL BUN 10 6-20 mg/dL Creatinine 0.67 0.50-1.00 mg/dL Calcium 9.8 8.6-10.4 mg/dL eGFR by Creatinine 123 >59 mL/min/1.73m2 Protein 7.4 6.0-8.3 g/dL Albumin 4.8 3.5-5.3 g/dL Alkaline Phosphatase 77 35-121 IU/L ALT (SGPT) 16 <5-47 IU/L AST (SGOT) 16 <5-40 IU/L Bilirubin, Total 0.3 <0.2-1.2 mg/dL A/G Ratio 1.8 1.1-2.5 P-TSH reflex to FT4 Reviewed date:01/03/2025 05:09:39 PM Interpretation:Normal Performing Lab: Notes/Report: Test performed by [facility] [address] [place] [address] , [place] [address] Mars Chahal MD, Process Tank Tender CLIA: [id number] TSH reflex to FT4 1.47 0.43-5.25 mU/L P-Vitamin D 25-Hydroxy Reviewed date:01/03/2025 05:09:39 PM Interpretation:29.7 Performing Lab: Notes/Report: Test performed by [facility] [address] [place] [address] , [place] [address] Mars Chahal MD, Process Tank Tender CLIA: [id number] Vitamin D 25-Hydroxy 29.7 30.0-100.0 ng/mL Interpretation of Vitamin D 25 OH: < 20 ng/mL - Deficiency 20 - 29 ng/mL - Insufficiency 30 - 100 ng/mL - Sufficiency > 100 ng/mL - Super-therapeutic- toxicity may occur above this level. Clinical correlation required. REASON FOR VISIT discuss anxiety Medications Medication SIG (Take, Route, Frequency, Duration) Notes Start Date End Date Status Levocetirizine Dihydrochloride 5 MG 1 tab(s) orally once a day (in the evening); Duration: 90 days Not-Taking SUMAtriptan Succinate 100 MG 1 tab(s) orally once, may repeat once in 2 hours 09/30/2022 Not-Taking Fluticasone Propionate 50 MCG/ACT 1 spray(s) intranasally once a day; Duration: 30 day(s) Not-Taking Zoloft 50 MG 1 tablet Orally Once a day; Duration: 90 days 01/02/2025 Active +DHA 28-0.975 & 200 MG as directed Orally once a day Active PARAGARD T 380-A IUD *Please rev iew for potential replacement for e-prescription and drug interaction check* Not-Taking Montelukast Sodium 10 MG 1 tab(s) orally once a day at night; Duration: 30 day(s) Not-Taking Promethazine HCl 25 MG 1 tab(s) orally every 6 hours, prn 11/01/2022 Not-Taking Contrave 8-90 MG week one: 1qam, week two:1 bid, week three:2qam and 1 qpm, Week 4 onward: 2 bid orally 06/24/2022 Not-Taking Vital Signs Blood pressure systolic 120 mm Hg 01/03/20 25 Blood pressure diastolic 86 mm Hg 025 Heart Rate 74 /min 01/02/2025 Height 63.75 in 01/02/2025 Weight 178.8 lbs 01/02/2025 BMI 30.93 kg/m2 01/02/2025 Encounters Encounter Location Date Provider Diagnosis [facility] [address] [facility] [address] [place], [place] [id number] 01/02/2025 Geno Hood Generalized anxiety disorder F41.1 ; Hair loss L65.9 and Vitamin D deficiency E55.9 Assessments Encounter Date Diagnosis (ICD Code) Assessment Notes Treatment Notes Treatment Clinical Notes Section Notes 01/02/2025 Generalized anxiety disorder (ICD-10 - F41.1) 01/02/2025 Hair loss (ICD-10 - L65.9) 01/02/2025 Vitamin D deficiency (ICD-10 - E55.9) Plan Of Treatment Medication Medication Name Sig Start Date Stop Date Notes Zoloft 25 MG 1 tablet Orally Once a day Zoloft 50 MG 1 tablet Orally Once a day; Duration: 90 days 01/02/2025 Next Appt Details Follow Up: via phone to repo rt test results, Reason: Progress Notes * ESE MOHSENOB:1995 (29 yo F)Acc No.[id number]:01/02/2025 Progress Notes Patient: HAYDEE JONES Provider: MARCI Osuna :1995 A ge:29 Y S ex:Female Date:01/02/2025 Address:[address] [place] [address] [address], [place], [id number] Pcp:Akil Cleveland Subjective: * Chief Complaints: * 1 . Discuss anxiety. * HPI: P sychology: The pt is here today to discuss worsening Anxiety. Pt states Dr Salazar prescribed Zoloft 25 mg daily. It helps but her daugther is getting ready to have heart surgery. She thinks the dose needs to be increased. 29 year old female presents with c/o Anxiety. E ndocrinology: She has been losing a lot of hair and needs labs checked. * ROS: D ERMATOLOGY: no R abisai. n o H fabrizio. G ASTROENTEROLOGY: no N ausea. n o V omiting. n o D iarrhea.? U ROLOGY: no D ifficulty urinating. n o B lood in urine. * Medical History: A llergic rhinitis, Migraine headache. * Surgical History: n one . * Family History: F ather: alive 30 yrs. M other: alive 28 yrs. P aternal Grand Father: alive. P aternal Grand Mother: alive. M aternal Grand Father: . M aternal Grand Mother: alive.?1 brother(s) , 1 sister(s) . . * Social History: C URRENT TOBACCO USE S moking Status: Patient does NOT smoke. H ome smoke detector use: yes. * Medications: T aking +DHA 28-0.975 & 200 MG Miscellaneous as directed Orally once a day , Taking Zoloft 25 MG Tablet 1 tablet Orally Once a day , Not-Taking PARAGARD T 380-A IUD , Notes to Pharmacist: *Please review for potential replacement for e-prescription and drug interaction check*, Not-Taking Montelukast Sodium 10 MG Tablet 1 tab(s) orally once a day at night , Not-Taking Levocetirizine Dihydrochloride 5 MG Tablet 1 tab(s) orally once a day (in the evening) , Not- Taking SUMAtriptan Succinate 100 MG Tablet 1 tab(s) orally once, may repeat once in 2 hours , Not-Taking Fluticasone Propionate 50 MCG/ACT Suspension 1 spray(s) intranasally once a day , Not-Taking Promethazine HCl 25 MG Tablet 1 tab(s) orally every 6 hours, prn , Not-Taking Contrave 8-90 MG Tablet Extended Release 12 Hour week one: 1qam, week two:1 bid, week three:2qam and 1 qpm, Week 4 onward: 2 bid orally , Discontinued Loratadine 10 MG Tablet 1 tablet Orally Once a day , Discontinued Pepcid 40 MG Tablet 1 tab(s) orally once a day (at bedtime) , Discontinued Cefuroxime Axetil 500 MG Tablet 1 tablet Orally every 12 hrs , Medication List reviewed and reconciled with the patient * Allergies: A moxicillin: rash, Penicillin: rash. Objective: * Vitals: W t:178.8, Temp:98.2, BP:120/86, HR:74, Nurse:ANUPAMA, Ht: 63.75, BMI:30.93. * Examination: P sychology: Grooming : a dequate. E ye contact : raj roque. M ood : p monica. G eneral Examination: General Appearance: N AD. H EENT: u nremarkable.?Oral cavity: n o lesions, mucosa moist and WNL, no erythema. N [place]: s upple, no lymphadenopathy. C hest: n ormal shape and expansion. H eart: R SR. L ungs: c lear to auscultation. A bdomen: bowel sounds present, soft and nontender, no organomegaly or masses, no guarding or rigidity. N eurologic Exam: I ntact, gait normal. S kin: n ormal, no rash. P eripheral pulses: n ormal (2+) bilaterally. E xtremities: n o leg edema. Assessment: * Assessment: 1. G eneralized anxiety disorder - F41.1 (Primary) 2 . H air loss - L65.9? 3. V itamin D deficiency - E55.9 Plan: * Treatment: 2. H air loss L AB: P-Comprehensive Metabolic Panel (CMP) (Collection Date & Time - 01/02/2025 09:04 AM) N ormal Value Reference Range A /G Ratio 1.8 1.1-2.5 - * A lbumin 4.8 3.5-5.3 - g/dL * A lkaline Phosphatase 77 35-121 - IU/L * A LT (SGPT) 16 <5-47 - IU/L * A ST (SGOT) 16 <5-40 - IU/L * B ilirubin, Total 0.3 <0.2-1.2 - mg/dL * B UN 10 6-20 - mg/dL * C alcium 9.8 8.6-10.4 - mg/dL * C hloride 105 97-108 - mmol/L * C O2 25 22-32 - mmol/L * C reatinine 0.67 0.50-1.00 - mg/dL * G lucose 71 65-99 - mg/dL * P otassium 4.7 3.5-5.3 - mmol/L * S odium 143 135-145 - mmol/L * P rotein 7.4 6.0-8.3 - g/dL * e GFR by Creatinine 123 >59 - mL/min/1.73m2 * Justine Gonzalez 01/03/2025 05: 09:29 PM > see phone encounter ?LAB: P-TSH reflex to FT4 (Collection Date & Time - 01/02/2025 09:04 AM)? Normal* Value Reference Range T SH reflex to FT4 1.47 0.43-5.25 - mU/L * Justine Gonzalez 01/03/2025 05: 09:29 PM > see phone encounter ?LAB: CBC Venipuncture (in house) (Collection Date & Time - 01/02/2025)* Value Reference Range w bc 6.2 3.5 - 10 * l ymph 26.7% 15 - 50 * m id 6.5% 2 - 15 * g ran 66.8% 35 - 80 * r bc 5.22 3.5 - 5.5 * h gb 14.3 11.5 - 16.5 * h ct 43.8 35 - 55 * m cv 83.9 75 - 100 * m ch 27.4 25 - 35 * m chc 32.7 31 - 38 * p latlet 394 100 - 400 * Aga Hawk 01/02/2025 10: 14:17 AM > 3.?Vitamin D deficiency?LAB: P-Vitamin D 25-Hydroxy (Collection Date & Time - 01/02/2025 09:04 AM)? 29.7* Value Reference Range V itamin D 25-Hydroxy 29.7 L 30.0-100.0 - ng/mL * Justine Gonzalez 01/03/2025 05: 09:29 PM > see phone encounter * Procedure Codes: 8 5025 CBC WITH AUTO DIFF, 06743 VENIPUNCT, ROUTINE*, 3074F SYST BP LT 130 MM HG, 3079F DIAST BP 80-89 MM HG * Follow Up: v ia phone to report test results * Images: Billing Information: * Visit Code: 70347 Office Visit, Est Pt., Level 4. * Procedure Codes: 39954 CBC WITH AUTO DIFF. 84529 VENIPUNCT, ROUTINE*. 3074F SYST BP LT 130 MM HG. 3079F DIAST BP 80-89 MM HG. * Electronic signature of MARCI Roland on 08/05/2025 at 01:58 PM EDT Sign off status: Pending * Provider: MARCI Osuna Date: 0 01/02/2025 Generated for Mariei ng/Fauteg/eTransmitting on: 1 01:58 PM EDT History and Physical Notes * HPI (History of Present Illness) Category Sub-Category Detail Notes Category Not es Psychology Anxiety Examination Category Sub-Category Detail Notes Category Not es General Examination HEENT: unremarkable Heart: RSR Lungs: clear to auscultatio n Abdomen: bowel sounds present , soft and nontender, no organomegaly or masses, no guarding or rigidity Extremities: no leg edema General Appearance: NAD Skin: normal, no rash Neurologic Exam: Intact, gait normal Neck: supple, no lymphaden opathy Oral cavity: no lesions, mucosa m oist and WNL, no erythema Peripheral pulses: normal (2+) bilatera lly Chest: normal shape and exp ansion Psychology Grooming : adequate Eye contact : normal Mood : pleasant
--- NOTE | 2025-08-05 13:54 | US_ITS ---
PROCEDURE: US OB >= 14 WEEKS FETUS CLINICAL INDICATION: 2ND TRIMESTER GROWTH SCAN COMPARISON: US US OB <= 14 WEEKS FETUS from 04/15/2025 US US OB <= 14 WEEKS FETUS from 05/06/2025 US US OB >= 14 WEEKS FETUS from 07/29/2025 FINDINGS: Transabdominal sonographic images of the pelvis were obtained. The following parameters are obtained: From her established due date she is 22weeks 0 days Viable fetus in the cephalic presentation with a posterior placenta grade 1. The cervix measures 3.58 cm heart rate: 150bpm bpm. BPD: 20weeks 5days HC: 21weeks 1day AC: 21weeks 0 days FL: 22weeks 2days HC/AC: 1.19 FL/BPD: 0.79 FL/AC: 0.24 Growth percentile: 18 Amniotic fluid: Subjectively the fluid is slightly low but the MVP today measures 3.52 cm. No obvious anomalies evident. Stomach, bladder, kidneys, three-vessel cord, four chamber heart appear normal. cardiac views: LVOT, RVOT, three-vessel view, four-chamber heart appear normal. IMPRESSION: 1. Viable fetus in the cephalic presentation with a posterior placenta grade 1. 2. The smoking pipe coater noted that the fluid appears subjectively low today although there is an MVP of 3.52 cm. 3. cardiac scan appears normal. 4. The fetus is 18th percentile. 5. The rest of the limited anatomical scan appears normal. Dictated by: Wayne Mina MD 08/05/2025 15:09 Wayne Mina MD in OV 08/05/2025 15:09
--- OUTSIDE RECORDS SUMMARY | 2025-08-05 13:58 | XMS_ITS | Clinical Summary ---
[facility] [address] [place] [id number] Care Team Providers Care Any Commodity Buyer Name Role Phone Provider, No Known Primary [...] age to complete this topic Insurance [employer]ELA [employer] PPO Member Subscriber Plan / Payer (Ef fective 2023-Present) Name:Bhavik Lu Relation to Subscriber:Self Name:Lu, Bhavik Payer ID:[id number] (NAIC) Type:Not on file Address: [address] [place] [id number] [employer] Care Teams Any Commodity Buyer Relationship Specialty Start Date End Date Provider, No Known [facility] [place] [address] PCP - General 05/11/23
--- OUTSIDE RECORDS SUMMARY | 2025-08-05 13:58 | XMS_ITS | Clinical Summary ---
Author Organization Healthcare Address [address] [place] [address] Care Team Providers Care Rotary Operator Name Role Phone Unavailable Primary Care Provider Unavailabl e Encounters Date Type Department Care Team Description 07/26/2025 Telephone [facility] Pediatric Cardiac Diagnostic [facility] [address] [facility] [facility], [place] [address] Karthik Morrell MD from Last 3 Months [...] Care Team (Late st Contact Info) Description 08/14/2025 8:45 AM EDT Appointment Medical Office Building Obstetrics and Gynecology [address] [facility], [address] [place] [address] 08/27/2025 2:00 PM EST Appointment [facility] Pediatric Cardiac Diagnostic Testing [address] [facility], [place] [address] 08/27/2025 2:00 PM EST Office Visit [facility] [address] [place] [address] [place] [address] Health Maintenance Due Date Last Done Comments [...] Vaccines (1 - 3-dose SCDM series) 2024 [id number] Vaccine (1 - 2023-25 season) 2025 UKY-Influenza Vaccine (#1) 2025 09/01/2023 [...] [place] [id number] MANUELA
--- OUTSIDE RECORDS SUMMARY | 2025-08-05 13:59 | XMS_ITS | Encounter Summary ---
Author Organization Healthcare Address [address] [place] [address] Care Team Providers Care Fitness And Wellness Instructor Name Role Phone Unavailable Primary Care Provider Unavailabl e Encounter Details Date Type Department Care Team (Late Contact Info) Description 07/26/2025 Telephone [facility] Pediatric Cardiac Diagnostic Testing [address] [facility] [place] [address] Karthik Morrell MD [address] [facility] [address] [place] [address] Social History Tobacco Use Types [...] Department Care Team (Late Contact Info) Description 08/14/2025 8:45 AM EDT Appointment Medical Office Building Obstetrics and Gynecology [address] [facility], [address] [place] [address] 08/27/2025 2:00 PM EST Appointment [facility] Pediatric Cardiac Diagnostic Testing [address] [facility] [address] [facility], [place] [address] 08/27/2025 2:00 PM EST Office Visit [place] [facility]iology [address], [address] [place] [address] documented as of this encounter Visit Diagnoses Not on filedocumented in this encounter
--- OUTSIDE RECORDS SUMMARY | 2025-08-05 13:59 | XMS_ITS | Patient Health Record ---
Author Organization [facility] Address [address] [place] [id number] Care Team Providers Care Production Quality Manager Name Role Phone Ronnie Clevelandian Primary Care Provider [phone] MoncadaGregg lopezine Unavailable [phone] Geno Hood Unavailable [phone] Allergies Allergen (clinical drug ingredient) Drug/Non Drug [...] Interpretation:Normal Performing Lab: Notes/Report: Test performed by [facility] [address] [place] [address] , [address], [place] [address] Mars Chahal MD, Refrigeration Insulator CLIA: [id number] Sodium 143 135-145 mmol/L Potassium 4.7 3.5-5.3 [...] Interpretation:Normal Performing Lab: Notes/Report: Test performed by [facility] [address] [place] [address] , [facility] [place] [address] Mars Chahal MD, Refrigeration Insulator CLIA: [id number] TSH reflex to FT4 1.47 0.43-5.25 mU/L P-Vitamin D 25-Hydroxy Reviewed date:01/03/2025 05:09:39 PM Interpretation:29.7 Performing Lab: Notes/Report: Test performed by [facility] [address] [place] [address] [place] [address] Mars Chahal MD, Refrigeration Insulator CLIA: [id number] Vitamin D 25-Hydroxy 29.7 30.0-100.0 ng/mL Interpretation [...] W/U Status Risk Notes Problem Allergic rhinitis (03514491) ALLERGIC RHINITIS NOS (477.9) Active confirmed Problem Sinusitis (18295488) Sinusitis (J32.9) Active confirmed Problem Vitamin D deficiency (42454266) Vitamin D deficiency (E55.9) Active confirmed Problem Anxiety (19522335) Anxiety (F41.9) Active confi rmed Problem Environmental allergy (852942727) Environmental allergies (Z91.048) Active confirmed Problem Generalized anxiety disorder (41788007) Generalized anxiety disorder (F41.1) Active confirmed Problem Migraine with aura (5638558) Migraine with aura and without status migrainosus, not intractable (G43.109) Active confirmed Problem Neck pain (47561871) Cervical spine pain (M54.2) Active confirmed Problem Pain in thoracic spine (951955690) Chronic midline thoracic back pain (M54.6) Active confirmed Problem Seasonal allergic rhinitis (714970465) Seasonal allergic rhinitis, unspecified trigger (J30.2) Active confirmed Problem Gastroesophageal reflux disease (465462676) Gastroesophageal reflux disease, unspecified whether esophagitis present (K21.9) Active confirmed Vital Signs Heart Rate 74 /min 01/02/2025 Blood pressure diastolic 86 mm Hg 01/02/2025 Height 63.75 in 01/02/2025 Blood pressure systolic 120 mm Hg 01/02/2025 Weight 178.8 lbs 01/02/2025 BMI 30.93 kg/m2 01/02/2025 Encounters Encounter [facility] Date [facility] [address] [facility] [address] [facility] [address] [place] [id number] 01/02/2025 Geno Hood Generalized anxiety disorder F41.1 ; Hair loss L65.9 and Vitamin D deficiency E55.9 [facility] [address] [facility] [address] [facility] [address] [place] [id number] 01/03/2025 Geno Hood Assessments Encounter Date Diagnosis [...] MANUELA [employer]PHY [employer] [address] [place] [address] [id number] HAYDEE MULLIGAN Self - patient is the insured Medical (General) History Medical History History ICD Code allergic rhinitis migraine headache Surgical History Surgery Date(Month/Year) none
== END 2025-08-05 23:59 | disposition home or self-care (01) ==
LOC: RAD 13:49
PROVIDERS: PCP Physician Assistant
DX: O41.02X0 Oligohydramnios, second trimester, not applicable or unspecified (principal); O36.5920 Maternal care for other known or suspected poor fetal growth, second trimester, not applicable or unspecified; Z3A.22 22 weeks gestation of pregnancy
CPT/HCPCS: 76805